=== PATIENT | female | born 1975 | race Caucasian/White ===

== ENCOUNTER 2016-03-27 11:17 | Emergency (ER) | payer OTHER, MEDICARE ==
[~2016-03-27 11:17] MED LIST: ALBU17IN2 INH; AMIT50TA PO; CLON0.5T PO; DIFL150T PO; GABA600T PO; IBUP800T23 PO; LEVA500T PO; MAGN400T5 PO; OXYC1TAB23 PO; ZANA4TAB PO
[2016-03-27] MEDS ORDERED: MORPHINE 4 MG/ML 1ML SYRINGE As Ordered ONE (12:58)
[2016-03-27] MEDS ORDERED: PERCOCET 5MG/325MG TAB As Ordered ONE (14:58)
--- NOTE | 2016-03-27 15:17 | EDDOCDS ---
Physician Documentation [facility] Name: Radha Anderson Age: 40 yrs Sex: Female : 1975 Arrival Date: 03/27/2016 Time: 11:17 Bed PD Private MD: Amadeo Guerrero G Disposition: 03/27/16 15:08 Discharged to Home/Self Care. Impression: Low back pain - post-op pain, Localized swelling, mass and lump, left lower limb, Abdominal distension (gaseous). - Condition is Stable. - Discharge Instructions: Chronic Back Pain, Edema. - Medication Reconciliation form. - Follow up: Private Physician; When: Call to arrange an appointment; Reason: Wound/Symptom Recheck, Recheck today's complaints, Worsening of conditions, Continuance of care. - Problem is an ongoing problem. - Symptoms are unchanged. - Notes: Call your surgeon for follow up tomorrow. Historical: - Allergies: Nortriptylineaggression; - Home Meds: 1. amitriptyline 100 mg oral tab once daily 2. gabapentin 600 mg Oral tab 1 tab 3 times per day 3. Klonopin 0.5 mg Oral tab qid uses 1 mg for third dose 4. oxycodone-acetaminophen 5-325 mg Oral tab 2 tabs every 4-6 hours (Last dose: 03/27/2016 09:00) 5. methocarbamol 500 mg Oral tab 4 times per day (Last dose: 03/27/2016 09:00) - PMHx: Kidney stones; stage II renal failure; Endometriosis; PTSD; Chronic Back pain; Depression; Anxiety; - PSHx: Laparoscopy; Lithotripsy; Endoscopy, Upper; nasal fracture; Lumbar Fusion; - Social history: Smoking status: Patient uses tobacco products, current every day smoker. No barriers to communication noted, The patient speaks fluent Bangladeshi. - Family history: Not pertinent. - : The pt / caregiver states he / she is not on anticoagulants. Home medication list is obtained from the patient. - Exposure Risk Screening:: None identified. 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 3 in. (160.02 cm); Pain 9/10; 14:52 BP 131 / 77; Pulse 81; Resp 18; Temp 96.7(O); Pulse Ox 96% on R/A; Pain 10/10; jjr 11:19 Body Mass Index 22.14 (56.70 kg, 160.02 cm) jrd MDM: 12:53 morphine 4 mg IM once ordered. cc10 12:54 UA Ordered. EDMS 12:54 US Lower Extremities Bilateral R/O DVT Ordered. EDMS 12:54 KUB Ordered. EDMS 12:54 Spine. Lumbosacral, Complete Ordered. EDMS 13:46 UA Reviewed. cc10 14:22 [facility] Payment Agreement was scanned into [employer] and attached to record. jp5 14:22 Financial registration complete. jp5 14:53 oxyCODONE-acetaminophen 5 mg-325 mg 2 tabs PO once ordered. jjr Administered Medications: 13:03 Drug: morphine 4 mg [morphine 4 mg/mL intravenous cartridge (1 mL)] Route: IM; Site: ms18 right gluteus; 14:52 Follow up: BP 131 / 77; Pulse 81 bpm; Resp 18 bpm; Temp 96.7 Oral; Pulse Ox 96% RA; jjr Pain 10 Adult 14:59 Drug: oxyCODONE-acetaminophen 2 tabs [oxycodone-acetaminophen 5 mg-325 mg tablet (2 jjr tabs)] Route: PO; Signatures: Dispatcher [employer] EDAmelia Gagnon RN RN jjr Pino De Paz PAFiorella PAFiorella cc10 Sushila Bryan RN RN ms18 Aislinn López jp5 The chart was reviewed and I authenticate all verbal orders and agree with the evaluation and treatment provided.Attachments: 14:22 [facility] Payment Agreement jp5 MTDD
--- NOTE | 2016-03-27 15:17 | EDDOCDS ---
Nurse's Notes [facility] Name: Radha Anderson Age: 40 yrs Sex: Female : 1975 Arrival Date: 03/27/2016 Time: 11:17 Bed PD Private MD: Amadeo Guerrero G Diagnosis: Low back sdma-kduy-le pain;Localized swelling, mass and lump, left lower limb;Abdominal distension (gaseous) Presentation: 03/27 11:25 Presenting complaint: Patient states: lumbar fusion with hardware with Dr Alfredo in [place] at [facility] 5 days ago,reports abdominal bloating increasing since surgery and bilateral leg swelling, pain also not controlled pt also reports new area of swelling beneath right subscapular, pt also reports "thrush and they forgot to send me home with abx". Adult Sepsis Screening: The patient does not have new or worsening altered mentation. Patient's respiratory rate is less than 22. Systolic blood pressure is greater than 100. Patient has a qSOFA score of 0- Negative Sepsis Screen. Suicide/Homicide risk assessment- the patient denies having any suicidal and/or homicidal ideations and does not present with any other emotional, behavioral or mental health complaints. Status: Patient is not a creative services producer or dependent. Transition of care: patient was not received from another setting of care. 11:25 Acuity: OK Level 3 jjr 11:25 Method Of Arrival: Walkin/Carried/Asstd jjr Triage Assessment: 11:33 General: Appears uncomfortable, Behavior is appropriate for age. Pain: Location: lumbar jjr area and abdomen. HIV screening NA for this visit Offered previously. 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 amitriptyline 100 mg oral tab once daily 2. gabapentin 600 mg Oral tab 1 tab 3 times per day 3. Klonopin 0.5 mg Oral tab qid uses 1 mg for third dose 4. oxycodone-acetaminophen 5-325 mg Oral tab 2 tabs every 4-6 hours (Last dose: 03/27/2016 09:00) 5. methocarbamol 500 mg Oral tab 4 times per day (Last dose: 03/27/2016 09:00) - PMHx: Kidney stones; stage II renal failure; Endometriosis; PTSD; Chronic Back pain; Depression; Anxiety; - PSHx: Laparoscopy; Lithotripsy; Endoscopy, Upper; nasal fracture; Lumbar Fusion; - Social history: Smoking status: Patient uses tobacco products, current every day smoker. No barriers to communication noted, The patient speaks fluent Slovak. - Family history: Not pertinent. - : The pt / caregiver states he / she is not on anticoagulants. Home medication list is obtained from the patient. - Exposure Risk Screening:: None identified. Screenin:03 Screening information is obtained from the patient. Fall risk: No risks identified. ms18 Assistance ADL's: requires no assistance with activities of daily living. Abuse/DV Screen: The patient / caregiver reports he/she is: not in a situation that causes fear, pain or injury. Nutritional screening: No deficits noted. Advance Directives: There is no living will. home support is adequate. Assessment: 13:03 General: Appears in no apparent distress, uncomfortable, Behavior is appropriate for ms18 age, cooperative, crying. Pain: Location: abdomen and lumbar area Pain currently is 9 out of 10 on a pain scale. Neurological: Level of Consciousness is awake, alert, obeys commands, Oriented to person, place, time. Respiratory: No deficits noted. Derm: Skin is pink, warm & dry. 14:10 General: Appears in no apparent distress, Behavior is appropriate for age, cooperative. ms18 Neurological: Level of Consciousness is awake, alert, obeys commands, Oriented to person, place, time. Respiratory: No deficits noted. Derm: Skin is pink, warm & dry. Removed pt's old dressings for Baldev NOLAN to assess surgical incisions. Incisions look good, no redness, swelling, or drainage noted. New dressings applied to pt's lower back and lower mid abdominal area. Pt tolerated well. Vital Signs: 11:19 BP 139 / 74; Pulse 97; Resp 20; Temp 97.6(O); Pulse Ox 97% ; Weight 56.7 kg; Height 5 jrd ft. 3 in. (160.02 cm); Pain 9/10; 14:52 BP 131 / 77; Pulse 81; Resp 18; Temp 96.7(O); Pulse Ox 96% on R/A; Pain 10/10; jjr 11:19 Body Mass Index 22.14 (56.70 kg, 160.02 cm) [facility] Vitals: 11:19 Log In Time: March 27, 2016 at 11:08. [facility] ED Course: 11:18 Patient visited by Jay Jay Acuna PCA. jrd 11:18 Patient moved to Waiting jrd 11:19 Amadeo Guerrero is Private Physician. jrd 11:20 Patient visited by Jay Jay Acuna PCA. jrd 11:20 Patient moved to Pre RCE jrd 11:29 Triage Initiated jjr 12:07 Patient moved to Triage 1 jjr 12:44 Pino De Paz PA-C is PHCP. cc10 12:44 Rebecca Marquez MD is Attending Physician. cc10 12:53 Patient visited by Pino De Paz PA-C. cc10 12:53 Patient visited by Pino De Paz PA-C. cc10 12:57 UA Sent. ar3 12:59 Patient moved to Ultrasound en 13:03 Patient visited by Sushila Bryan RN. ms18 13:03 The patient / caregiver is instructed regarding the plan of care and ED course. ms18 Accompanied by Family Member, Patient has correct armband on for positive identification. Property :Personal belongings accompany Pt. 13:35 Patient visited by Sushila Bryan RN. ms18 13:35 Patient moved to PD2 ms18 14:22 [facility] Payment Agreement was scanned into [employer] and attached to record. jp5 14:27 Patient visited by Bulmaro Walker PCA. f 15:14 No IV's were initiated during this patient's visit. No procedures done that require jjr assistance. Administered Medications: 13:03 Drug: morphine 4 mg [morphine 4 mg/mL intravenous cartridge (1 mL)] Route: IM; Site: ms18 right gluteus; 14:52 Follow up: BP 131 / 77; Pulse 81 bpm; Resp 18 bpm; Temp 96.7 Oral; Pulse Ox 96% RA; jjr Pain 12/06 Adult 14:59 Drug: oxyCODONE-acetaminophen 2 tabs [oxycodone-acetaminophen 5 mg-325 mg tablet (2 jjr tabs)] Route: PO; Order Results: Lab Order: UA; SPEC'M 03/27/16 12:57 Test: APPEARANCE, URINE; Value: CLEAR; Range: CLEAR; Status: F Test: COLOR, URINE; Value: YELLOW; Range: YELLOW; Status: F Test: PH,URINE; Value: 6.0; Range: 5.0-9.0; Units: UNITS; Status: F Test: SPECIFIC GRAVITY URINE AUTO; Value: 1.027; Range: 1.002-1.035; Status: F Test: PROTEIN, URINE AUTO; Value: NEGATIVE; Range: NEGATIVE; Units: mg/dL; Status: F Test: GLUCOSE, URINE (UA) AUTO; Value: NEGATIVE; Range: NEGATIVE; Units: mg/dL; Status: F Test: KETONE, URINE AUTO; Value: NEGATIVE; Range: NEGATIVE; Units: mg/dL; Status: F Test: UROBILINOGEN, URINE AUTO; Value: 0.2; Range: 0.0-2.0; Units: mg/dL; Status: F Test: BILIRUBIN, URINE AUTO; Value: 1+; Range: NEGATIVE; Abnormal: Above high normal; Status: F Test: NITRITE, URINE AUTO; Value: NEGATIVE; Range: NEGATIVE; Status: F Test: LEUKOCYTE ESTERASE, URINE AUTO; Value: NEGATIVE; Range: NEGATIVE; Status: F Test: BLOOD, URINE BLOOD; Value: NEGATIVE; Range: NEGATIVE; Status: F Test: WBC, URINE AUTO; Value: 1; Range: 0-3; Units: /HPF; Status: F Test: RBC, URINE AUTO; Value: 1; Range: 0-3; Units: /HPF; Status: F Test: BACTERIA, URINE AUTO; Value: NEGATIVE; Range: NEGATIVE; Status: F Test: SQUAMOUS EPITHELIAL CELL UR AU; Value: 7; Range: 0-6; Units: /HPF; Status: F Test: MUCUS, URINE; Value: SMALL; Range: NEGATIVE; Status: F Test: HYALINE CAST, URINE AUTO; Value: 0; Range: 0-1; Units: /LPF; Status: F Outcome: 15:08 Discharge ordered by Provider. cc10 15:14 Discharge Assessment: patient administered narcotics - yes. Pt provided with safe jjr discharge. The following High Risk Discharge criteria are identified: None. Discharged to home ambulatory, with parent. Condition: stable. Discharge instructions given to patient, Instructed on discharge instructions, follow up and referral plans. Demonstrated understanding of instructions. Ultrasound Study completed. 15:15 Patient left the ED. jjr Signatures: Amelia Monte, RN RN jjr Roberta Lorenzo, FULLING MACHINE OPERATOR FULLING MACHINE OPERATOR ar3 Bulmaro Walker, FULLING MACHINE OPERATOR FULLING MACHINE OPERATOR jlf Pino De Paz, PA-C PA-C cc10 Sushila Bryan,SNEHAL RN ms18 Jay Jay Acuna, FULLING MACHINE OPERATOR FULLING MACHINE OPERATOR d Tammy Weber Jennalee jp5 MTDD
--- NOTE | 2016-03-28 11:18 | REP ---
Bilateral lower extremity vein duplex ultrasound: The deep veins demonstrate normal compression, normal Doppler color flow and normal Doppler waveforms with respiration and augmentation at multiple levels from the popliteal veins to the common femoral veins bilaterally. Impression: Negative study. There is no deep vein thrombus on the right or the left. Signed by Vamshi Cavazos MD 03/27/2016 01:41 P
--- NOTE | 2016-03-28 11:18 | REP ---
Supine abdomen single AP view: Comparisons 02/06/2015. The bowel gas pattern is normal. No calcifications. There has been interim surgical fusion of the L4-L5 vertebra. The skeletal structures and soft tissues are otherwise unremarkable. Impression: Normal bowel gas pattern. Signed by Vamshi Cavazos MD 03/27/2016 01:35 P
--- NOTE | 2016-03-28 11:18 | REP ---
Lumbar spine five views: Upon review of a thoracic spine study dated 06/05/2008., there are accessory ribs adjacent to the L1 vertebral body. There has been interim surgical fusion of the L5 S1 vertebra. Vertebral body heights and alignment are normal. There is degenerative disc disease at L 03/04. The disc spaces are otherwise unremarkable. On the prior study, there was bilateral L5 spondylolysis. This is obscured by the surgical fusion hardware on the current study. The pedicles, facets and sacroiliac articulations are unremarkable. Impression: Bilateral L5 spondylolysis. There is L5 S1 surgical fusion. L3-4 degenerative disc disease. Otherwise, negative lumbar spine. Signed by Vamshi Cavazos MD 03/27/2016 01:40 P
--- NOTE | 2016-03-29 16:17 | EDDOCDS ---
Nurse's Notes [facility] Name: Radha Anderson Age: 40 yrs Sex: Female : 1975 Arrival Date: 03/27/2016 Time: 11:17 Bed PD Private MD: Amadeo Guerrero G Diagnosis: Low back [id number]-pw pain;Localized swelling, mass and lump, left lower limb;Abdominal distension (gaseous) Presentation: 03/27 11:25 Presenting complaint: Patient states: lumbar fusion with hardware with Dr Alfredo in [place] at [facility] 5 days ago,reports abdominal bloating increasing since surgery and bilateral leg swelling, pain also not controlled pt also reports new area of swelling beneath right subscapular, pt also reports "thrush and they forgot to send me home with abx". Adult Sepsis Screening: The patient does not have new or worsening altered mentation. Patient's respiratory rate is less than 22. Systolic blood pressure is greater than 100. Patient has a qSOFA score of 0- Negative Sepsis Screen. Suicide/Homicide risk assessment- the patient denies having any suicidal and/or homicidal ideations and does not present with any other emotional, behavioral or mental health complaints. Status: Patient is not a social service director or dependent. Transition of care: patient was not received from another setting of care. 11:25 Acuity: OK Level 3 jjr 11:25 Method Of Arrival: Walkin/Carried/Asstd jjr Triage Assessment: 11:33 General: Appears uncomfortable, Behavior is appropriate for age. Pain: Location: lumbar jjr area and abdomen. HIV screening NA for this visit Offered previously. 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 amitriptyline 100 mg oral tab once daily 2. gabapentin 600 mg Oral tab 1 tab 3 times per day 3. Klonopin 0.5 mg Oral tab qid uses 1 mg for third dose 4. oxycodone-acetaminophen 5-325 mg Oral tab 2 tabs every 4-6 hours (Last dose: 03/27/2016 09:00) 5. methocarbamol 500 mg Oral tab 4 times per day (Last dose: 03/27/2016 09:00) - PMHx: Kidney stones; stage II renal failure; Endometriosis; PTSD; Chronic Back pain; Depression; Anxiety; - PSHx: Laparoscopy; Lithotripsy; Endoscopy, Upper; nasal fracture; Lumbar Fusion; - Social history: Smoking status: Patient uses tobacco products, current every day smoker. No barriers to communication noted, The patient speaks fluent Uzbek. - Family history: Not pertinent. - : The pt / caregiver states he / she is not on anticoagulants. Home medication list is obtained from the patient. - Exposure Risk Screening:: None identified. Screenin:03 Screening information is obtained from the patient. Fall risk: No risks identified. ms18 Assistance ADL's: requires no assistance with activities of daily living. Abuse/DV Screen: The patient / caregiver reports he/she is: not in a situation that causes fear, pain or injury. Nutritional screening: No deficits noted. Advance Directives: There is no living will. home support is adequate. Assessment: 13:03 General: Appears in no apparent distress, uncomfortable, Behavior is appropriate for ms18 age, cooperative, crying. Pain: Location: abdomen and lumbar area Pain currently is 9 out of 10 on a pain scale. Neurological: Level of Consciousness is awake, alert, obeys commands, Oriented to person, place, time. Respiratory: No deficits noted. Derm: Skin is pink, warm & dry. 14:10 General: Appears in no apparent distress, Behavior is appropriate for age, cooperative. ms18 Neurological: Level of Consciousness is awake, alert, obeys commands, Oriented to person, place, time. Respiratory: No deficits noted. Derm: Skin is pink, warm & dry. Removed pt's old dressings for Baldev NOLAN to assess surgical incisions. Incisions look good, no redness, swelling, or drainage noted. New dressings applied to pt's lower back and lower mid abdominal area. Pt tolerated well. Vital Signs: 11:19 BP 139 / 74; Pulse 97; Resp 20; Temp 97.6(O); Pulse Ox 97% ; Weight 56.7 kg; Height 5 jrd ft. 3 in. (160.02 cm); Pain 9/10; 14:52 BP 131 / 77; Pulse 81; Resp 18; Temp 96.7(O); Pulse Ox 96% on R/A; Pain 10/10; jjr 11:19 Body Mass Index 22.14 (56.70 kg, 160.02 cm) [facility] Vitals: 11:19 Log In Time: March 27, 2016 at 11:08. [facility] ED Course: 11:18 Patient visited by Jay Jay Acuna PCA. jrd 11:18 Patient moved to Waiting jrd 11:19 Amadeo Guerrero is Private Physician. jrd 11:20 Patient visited by Jay Jay Acuna PCA. jrd 11:20 Patient moved to Pre RCE jrd 11:29 Triage Initiated jjr 12:07 Patient moved to Triage 1 jjr 12:44 Pino De Paz PA-C is PHCP. cc10 12:44 Rebecca Marquez MD is Attending Physician. cc10 12:53 Patient visited by Pino De Paz PA-C. cc10 12:53 Patient visited by Pino De Paz PA-C. cc10 12:57 UA Sent. ar3 12:59 Patient moved to Ultrasound en 13:03 Patient visited by Sushila Bryan RN. ms18 13:03 The patient / caregiver is instructed regarding the plan of care and ED course. ms18 Accompanied by Family Member, Patient has correct armband on for positive identification. Property :Personal belongings accompany Pt. 13:35 Patient visited by Sushila Bryan RN. ms18 13:35 Patient moved to PD2 ms18 14:22 [facility] Payment Agreement was scanned into [employer] and attached to record. jp5 14:27 Patient visited by Bulmaro Walker PCA. jlf 15:14 No IV's were initiated during this patient's visit. No procedures done that require jjr assistance. 18:36 T-Sheet-- Draft Copy was scanned into [employer] and attached to record. klr 03/28 11:20 KUB Returned. EDMS 11:20 Spine. Lumbosacral, Complete Returned. EDMS 11:20 US Lower Extremities Bilateral R/O DVT Returned. EDMS Administered Medications: 03/27 13:03 Drug: morphine 4 mg [morphine 4 mg/mL intravenous cartridge (1 mL)] Route: IM; Site: ms18 right gluteus; 14:52 Follow up: BP 131 / 77; Pulse 81 bpm; Resp 18 bpm; Temp 96.7 Oral; Pulse Ox 96% RA; jjr Pain 12/06 Adult 14:59 Drug: oxyCODONE-acetaminophen 2 tabs [oxycodone-acetaminophen 5 mg-325 mg tablet (2 jjr tabs)] Route: PO; Order Results: Lab Order: UA; SPEC'M 03/27/16 12:57 Test: APPEARANCE, URINE; Value: CLEAR; Range: CLEAR; Status: F Test: COLOR, URINE; Value: YELLOW; Range: YELLOW; Status: F Test: PH,URINE; Value: 6.0; Range: 5.0-9.0; Units: UNITS; Status: F Test: SPECIFIC GRAVITY URINE AUTO; Value: 1.027; Range: 1.002-1.035; Status: F Test: PROTEIN, URINE AUTO; Value: NEGATIVE; Range: NEGATIVE; Units: mg/dL; Status: F Test: GLUCOSE, URINE (UA) AUTO; Value: NEGATIVE; Range: NEGATIVE; Units: mg/dL; Status: F Test: KETONE, URINE AUTO; Value: NEGATIVE; Range: NEGATIVE; Units: mg/dL; Status: F Test: UROBILINOGEN, URINE AUTO; Value: 0.2; Range: 0.0-2.0; Units: mg/dL; Status: F Test: BILIRUBIN, URINE AUTO; Value: 1+; Range: NEGATIVE; Abnormal: Above high normal; Status: F Test: NITRITE, URINE AUTO; Value: NEGATIVE; Range: NEGATIVE; Status: F Test: LEUKOCYTE ESTERASE, URINE AUTO; Value: NEGATIVE; Range: NEGATIVE; Status: F Test: BLOOD, URINE BLOOD; Value: NEGATIVE; Range: NEGATIVE; Status: F Test: WBC, URINE AUTO; Value: 1; Range: 0-3; Units: /HPF; Status: F Test: RBC, URINE AUTO; Value: 1; Range: 0-3; Units: /HPF; Status: F Test: BACTERIA, URINE AUTO; Value: NEGATIVE; Range: NEGATIVE; Status: F Test: SQUAMOUS EPITHELIAL CELL UR AU; Value: 7; Range: 0-6; Units: /HPF; Status: F Test: MUCUS, URINE; Value: SMALL; Range: NEGATIVE; Status: F Test: HYALINE CAST, URINE AUTO; Value: 0; Range: 0-1; Units: /LPF; Status: F Radiology Order: KUB Test: KUB REASON FOR EXAMINATION: Abdomen Pain; Supine abdomen single AP view:; ; Comparisons 02/06/2015.; ; The bowel gas pattern is normal. No calcifications.; ; There has been interim surgical fusion of the L4-L5 vertebra.; ; The skeletal structures and soft tissues are otherwise unremarkable.; ; Impression:; ; Normal bowel gas pattern.; ; ; Signed by; Vamshi Cavazos MD 03/27/2016 01:35 P; Radiology Order: Spine. Lumbosacral, Complete Test: Spine. Lumbosacral, Complete REASON FOR EXAMINATION: pain; Lumbar spine five views:; ; Upon review of a thoracic spine study dated 06/05/2008., there are accessory ribs; adjacent to the L1 vertebral body.; ; There has been interim surgical fusion of the L5 S1 vertebra.; ; Vertebral body heights and alignment are normal. There is degenerative disc; disease at L 03/04. The disc spaces are otherwise unremarkable.; ; On the prior study, there was bilateral L5 spondylolysis. This is obscured by; the surgical fusion hardware on the current study.; ; The pedicles, facets and sacroiliac articulations are unremarkable.; ; Impression:; ; Bilateral L5 spondylolysis. There is L5 S1 surgical fusion.; ; L3-4 degenerative disc disease.; ; Otherwise, negative lumbar spine.; ; ; Signed by; Vamshi Cavazos MD 03/27/2016 01:40 P; Radiology Order: US Lower Extremities Bilateral R/O DVT Test: US Lower Extremities Bilateral R/O DVT REASON FOR EXAMINATION: Deformity/Swelling; Bilateral lower extremity vein duplex ultrasound:; ; The deep veins demonstrate normal compression, normal Doppler color flow and; normal Doppler waveforms with respiration and augmentation at multiple levels; from the popliteal veins to the common femoral veins bilaterally.; ; Impression:; ; Negative study. There is no deep vein thrombus on the right or the left.; ; ; Signed by; Vamshi Cavazos MD 03/27/2016 01:41 P; Outcome: 15:08 Discharge ordered by Provider. cc10 15:14 Discharge Assessment: patient administered narcotics - yes. Pt provided with safe jjr discharge. The following High Risk Discharge criteria are identified: None. Discharged to home ambulatory, with parent. Condition: stable. Discharge instructions given to patient, Instructed on discharge instructions, follow up and referral plans. Demonstrated understanding of instructions. Ultrasound Study completed. 15:15 Patient left the ED. lilyjr Signatures: Dispatcher [employer] EDMS Amelia Monte, RN RN jlilyr Roberta Lorenzo, CHANGE DIRECTOR CHANGE DIRECTOR ar3 Bulmaro Walker, CHANGE DIRECTOR CHANGE DIRECTOR jlf Pino De Paz, PA-C PA-C cc10 Sushila Bryan RN RN ms18 Jay Jay Acuna, CHANGE DIRECTOR CHANGE DIRECTOR Tammy Jauregui Jennalee jp5 Yady Meneses Chart Complete MTDD
--- NOTE | 2016-03-29 16:17 | EDDOCDS ---
Physician Documentation [facility] Name: Radha Anderson Age: 40 yrs Sex: Female : 1975 Arrival Date: 03/27/2016 Time: 11:17 [address] Private MD: Amadeo Guerrero G Disposition: 03/27/16 15:08 Discharged to Home/Self Care. Impression: Low back pain - post-op pain, Localized swelling, mass and lump, left lower limb, Abdominal distension (gaseous). - Condition is Stable. - Discharge Instructions: Chronic Back Pain, Edema. - Medication Reconciliation form. - Follow up: Private Physician; When: Call to arrange an appointment; Reason: Wound/Symptom Recheck, Recheck today's complaints, Worsening of conditions, Continuance of care. - Problem is an ongoing problem. - Symptoms are unchanged. - Notes: Call your surgeon for follow up tomorrow. Historical: - Allergies: Nortriptylineaggression; - Home Meds: 1. amitriptyline 100 mg oral tab once daily 2. gabapentin 600 mg Oral tab 1 tab 3 times per day 3. Klonopin 0.5 mg Oral tab qid uses 1 mg for third dose 4. oxycodone-acetaminophen 5-325 mg Oral tab 2 tabs every 4-6 hours (Last dose: 03/27/2016 09:00) 5. methocarbamol 500 mg Oral tab 4 times per day (Last dose: 03/27/2016 09:00) - PMHx: Kidney stones; stage II renal failure; Endometriosis; PTSD; Chronic Back pain; Depression; Anxiety; - PSHx: Laparoscopy; Lithotripsy; Endoscopy, Upper; nasal fracture; Lumbar Fusion; - Social history: Smoking status: Patient uses tobacco products, current every day smoker. No barriers to communication noted, The patient speaks fluent Gibraltarian. - Family history: Not pertinent. - : The pt / caregiver states he / she is not on anticoagulants. Home medication list is obtained from the patient. - Exposure Risk Screening:: None identified. 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 3 in. (160.02 cm); Pain 9/10; 14:52 BP 131 / 77; Pulse 81; Resp 18; Temp 96.7(O); Pulse Ox 96% on R/A; Pain 10/10; jjr 11:19 Body Mass Index 22.14 (56.70 kg, 160.02 cm) jrd MDM: 12:53 morphine 4 mg IM once ordered. cc10 12:54 UA Ordered. EDMS 12:54 US Lower Extremities Bilateral R/O DVT Ordered. EDMS 12:54 KUB Ordered. EDMS 12:54 Spine. Lumbosacral, Complete Ordered. EDMS 13:46 UA Reviewed. cc10 14:22 [facility] Payment Agreement was scanned into [employer] software and attached to record. jp5 14:22 Financial registration complete. jp5 14:53 oxyCODONE-acetaminophen 5 mg-325 mg 2 tabs PO once ordered. jjr 18:36 T-Sheet-- Draft Copy was scanned into [employer] software and attached to record. klr Administered Medications: 13:03 Drug: morphine 4 mg [morphine 4 mg/mL intravenous cartridge (1 mL)] Route: IM; Site: ms18 right gluteus; 14:52 Follow up: BP 131 / 77; Pulse 81 bpm; Resp 18 bpm; Temp 96.7 Oral; Pulse Ox 96% RA; jjr Pain 10 Adult 14:59 Drug: oxyCODONE-acetaminophen 2 tabs [oxycodone-acetaminophen 5 mg-325 mg tablet (2 jjr tabs)] Route: PO; Signatures: Dispatcher [employer] EDAmelia Gagnon, RN RN jjr Pino De Paz, PA-C PA-C cc10 Sushila Bryan RN RN ms18 Aislinn López jp5 Yady Meneses klbuffy The chart was reviewed and I authenticate all verbal orders and agree with the evaluation and treatment provided.Attachments: 14:22 [facility] Payment Agreement 5 18:36 T-Sheet-- Draft Copy klr Chart Complete MTDD
--- NOTE | 2016-03-29 16:17 | EDDOCDS ---
Physician Documentation [facility] Name: Rdaha Anderson Age: 40 yrs Sex: Female : 1975 Arrival Date: 03/27/2016 Time: 11:17 Bed [address] Private MD: Amadeo Guerrero G Disposition: 03/27/16 15:08 Discharged to Home/Self Care. Impression: Low back pain - post-op pain, Localized swelling, mass and lump, left lower limb, Abdominal distension (gaseous). - Condition is Stable. - Discharge Instructions: Chronic Back Pain, Edema. - Medication Reconciliation form. - Follow up: Private Physician; When: Call to arrange an appointment; Reason: Wound/Symptom Recheck, Recheck today's complaints, Worsening of conditions, Continuance of care. - Problem is an ongoing problem. - Symptoms are unchanged. - Notes: Call your surgeon for follow up tomorrow. Historical: - Allergies: Nortriptylineaggression; - Home Meds: 1. amitriptyline 100 mg oral tab once daily 2. gabapentin 600 mg Oral tab 1 tab 3 times per day 3. Klonopin 0.5 mg Oral tab qid uses 1 mg for third dose 4. oxycodone-acetaminophen 5-325 mg Oral tab 2 tabs every 4-6 hours (Last dose: 03/27/2016 09:00) 5. methocarbamol 500 mg Oral tab 4 times per day (Last dose: 03/27/2016 09:00) - PMHx: Kidney stones; stage II renal failure; Endometriosis; PTSD; Chronic Back pain; Depression; Anxiety; - PSHx: Laparoscopy; Lithotripsy; Endoscopy, Upper; nasal fracture; Lumbar Fusion; - Social history: Smoking status: Patient uses tobacco products, current every day smoker. No barriers to communication noted, The patient speaks fluent Syrian. - Family history: Not pertinent. - : The pt / caregiver states he / she is not on anticoagulants. Home medication list is obtained from the patient. - Exposure Risk Screening:: None identified. 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 3 in. (160.02 cm); Pain 9/10; 14:52 BP 131 / 77; Pulse 81; Resp 18; Temp 96.7(O); Pulse Ox 96% on R/A; Pain 10/10; jjr 11:19 Body Mass Index 22.14 (56.70 kg, 160.02 cm) jrd MDM: 12:53 morphine 4 mg IM once ordered. cc10 12:54 UA Ordered. EDMS 12:54 US Lower Extremities Bilateral R/O DVT Ordered. EDMS 12:54 KUB Ordered. EDMS 12:54 Spine. Lumbosacral, Complete Ordered. EDMS 13:46 UA Reviewed. cc10 14:22 [facility] Payment Agreement was scanned into [employer] and attached to record. jp5 14:22 Financial registration complete. jp5 14:53 oxyCODONE-acetaminophen 5 mg-325 mg 2 tabs PO once ordered. jjr 18:36 T-Sheet-- Draft Copy was scanned into [employer] and attached to record. klr Administered Medications: 13:03 Drug: morphine 4 mg [morphine 4 mg/mL intravenous cartridge (1 mL)] Route: IM; Site: ms18 right gluteus; 14:52 Follow up: BP 131 / 77; Pulse 81 bpm; Resp 18 bpm; Temp 96.7 Oral; Pulse Ox 96% RA; jjr Pain 10 Adult 14:59 Drug: oxyCODONE-acetaminophen 2 tabs [oxycodone-acetaminophen 5 mg-325 mg tablet (2 jjr tabs)] Route: PO; Signatures: Dispatcher MedHost EDAmelia Gagnon, RN RN jjr Pino De Paz, PA-C PA-C cc10 Sushila Bryan RN RN ms18 Aislinn López jp5 Yady Meneses klbuffy The chart was reviewed and I authenticate all verbal orders and agree with the evaluation and treatment provided.Attachments: 14:22 [facility] Payment Agreement 5 18:36 T-Sheet-- Draft Copy klr Chart Complete MTDD
== END 2016-03-27 15:15 | disposition home or self-care (01) ==
LOC: M ED 11:17
DX: G89.18 Other acute postprocedural pain (principal); M54.5 Low back pain; G89.28 Other chronic postprocedural pain; R60.0 Localized edema; R14.0 Abdominal distension (gaseous); F32.9 Major depressive disorder, single episode, unspecified; F41.9 Anxiety disorder, unspecified; N19 Unspecified kidney failure; N80.9 Endometriosis, unspecified; F17.210 Nicotine dependence, cigarettes, uncomplicated; Z79.899 Other long term (current) drug therapy; Z88.8 Allergy status to other drugs, medicaments and biological substances; Z98.1 Arthrodesis status

== ENCOUNTER 2016-04-23 12:31 | Emergency (ER) | payer OTHER, MEDICARE ==
--- NOTE | 2016-04-23 13:55 | REP ---
Clinical: Pain. Evaluate hardware. Technique: AP, lateral, bilateral oblique, and coned-down views. Comparison: 03/27/2016. Findings: Alignment and lordosis is maintained / stable. There is no evidence for acute fracture / compression injury or subluxation. Evidence for prior laminectomy with anterior/posterior fixation at the L5-S1 level noted and appears stable. Impression: Postsurgical changes at the L5-S1 level with associated hardware appears stable compared to prior examination. Otherwise normal alignment and appearance to the lumbar spine. Signed by Sergio Lyons MD 04/23/2016 01:47 P
--- NOTE | 2016-04-23 14:26 | EDDOCDS ---
Physician Documentation [facility] Name: Radha Anderson Age: 40 yrs Sex: Female : 1975 Arrival Date: 04/23/2016 Time: 12:31 Bed TR8 Private MD: Amadeo Guerrero G Disposition: 04/23/16 14:03 Discharged to Home/Self Care. Impression: Low back pain. - Condition is Stable. - Discharge Instructions: Back Pain, Adult, Dtoe-px-Maee. - Prescriptions for Percocet 5- 325 mg Oral Tablet - take 1 tablet by ORAL route every 6 hours As needed MDD: 4 tabs; 10 tablet. - Medication Reconciliation, Local Pharmacy Hours form. - Follow up: Private Physician; When: 1 - 2 days; Reason: Continuance of care. Follow up: Emergency Department; When: As needed; Reason: Worsening of conditions. - Problem is an ongoing problem. - Symptoms have improved. Historical: - Allergies: Nortriptylineaggression; Ibuprofen; - Home Meds: 1. Klonopin 1 mg oral tab 3 times per day as needed 2. gabapentin 600 mg Oral tab 1 tab 3 times per day 3. magnesium 400 mg oral tab daily 4. potassium chloride Unknown Oral once daily 5. oxycodone-acetaminophen 5-325 mg Oral tab 2 tabs every 4-6 hours 6. Ambien 5 mg Oral tab 1 tab once daily - PMHx: Anxiety; Chronic Back pain; Depression; Endometriosis; Kidney stones; PTSD; stage II renal failure; - PSHx: Laparoscopy; Lithotripsy; Endoscopy, Upper; nasal fracture; Lumbar Fusion; - Social history: Smoking status: Patient uses tobacco products, light tobacco smoker. No barriers to communication noted, The patient speaks fluent Maori, Speaks appropriately for age. - Family history: Not pertinent. - : The pt / caregiver states he / she is not on anticoagulants. Home medication list is obtained from the patient. - Exposure Risk Screening:: None identified. 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 3 in. (160.02 cm) (R); Pain 8/10; 14:17 BP 137 / 84; Pulse 93; Resp 16; Temp 98.0(O); Pulse Ox 100% on R/A; Pain 9/10; sew 12:32 Body Mass Index 22.32 (57.15 kg, 160.02 cm) lr2 MDM: 12:56 Spine. Lumbosacral, Complete Ordered. EDMS 13:13 Financial registration complete. lg 13:47 [facility] Payment Agreement was scanned into [employer] and attached to record. lg Signatures: Dispatcher [employer]Host EDMS Jeanine Tom, Reg Reg lg Zak Amaro RN RN mlb1 Naman Martinez, PANomanC PAFiorella dk1 Sushila Bryan,SNEHAL RN ms18 The chart was reviewed and I authenticate all verbal orders and agree with the evaluation and treatment provided.Attachments: 13:47 [facility] [place] Agreement lg MTDD
--- NOTE | 2016-04-23 14:26 | EDDOCDS ---
Nurse's Notes [facility] Name: Radha Anderson Age: 40 yrs Sex: Female : 1975 Arrival Date: 04/23/2016 Time: 12:31 Bed TR8 Private MD: Amadeo Guerrero G Diagnosis: Low back pain Presentation: 04/23 12:35 Presenting complaint: Patient states: Lumbar fusion a month ago pain in right lower mlb1 back radiating down right leg since worse since last night. Acute neurological deficits are not present. Mechanism of Injury: No Mechanism of Injury. Adult Sepsis Screening: The patient does not have new or worsening altered mentation. Patient's respiratory rate is less than 22. Systolic blood pressure is greater than 100. Patient has a qSOFA score of 0- Negative Sepsis Screen. Suicide/Homicide risk assessment- the patient denies having any suicidal and/or homicidal ideations and does not present with any other emotional, behavioral or mental health complaints. 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 Transition of care: patient was not received from another setting of care. 12:35 Acuity: OK Level 3 mlb1 12:35 Method Of Arrival: Walkin/Carried/Asstd mlb1 Triage Assessment: 12:39 General: Appears in no apparent distress, Behavior is appropriate for age, cooperative. mlb1 Pain: Location: lumbar area and right low back Pain currently is 8 out of 10 on a pain scale. HIV screening NA for this visit Offered previously. 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 Klonopin 1 mg oral tab 3 times per day as needed 2. gabapentin 600 mg Oral tab 1 tab 3 times per day 3. magnesium 400 mg oral tab daily 4. potassium chloride Unknown Oral once daily 5. oxycodone-acetaminophen 5-325 mg Oral tab 2 tabs every 4-6 hours 6. Ambien 5 mg Oral tab 1 tab once daily - PMHx: Anxiety; Chronic Back pain; Depression; Endometriosis; Kidney stones; PTSD; stage II renal failure; - PSHx: Laparoscopy; Lithotripsy; Endoscopy, Upper; nasal fracture; Lumbar Fusion; - Social history: Smoking status: Patient uses tobacco products, light tobacco smoker. No barriers to communication noted, The patient speaks fluent Luxembourgish, Speaks appropriately for age. - Family history: Not pertinent. - : The pt / caregiver states he / she is not on anticoagulants. Home medication list is obtained from the patient. - Exposure Risk Screening:: None identified. Screenin:22 Screening information is obtained from the patient. Fall risk: No risks identified. ms18 Assistance ADL's: requires no assistance with activities of daily living. Abuse/DV Screen: The patient / caregiver reports he/she is: not in a situation that causes fear, pain or injury. Nutritional screening: No deficits noted. Advance Directives: There is no living will. home support is adequate. Assessment: 14:22 General: Appears in no apparent distress, comfortable, Behavior is anxious, appropriate ms18 for age, cooperative. Pain: Location: lumbar area Pain currently is 9 out of 10 on a pain scale. Neurological: Level of Consciousness is awake, alert, obeys commands, Oriented to person, place, time. Respiratory: No deficits noted. Derm: Skin is pink, warm & dry. Musculoskeletal: Range of motion intact in all extremities. No deformity noted. Vital Signs: 12:32 BP 134 / 95; Pulse 103; Resp 16; Temp 97.9(O); Pulse Ox 100% on R/A; Weight 57.15 kg lr2 (R); Height 5 ft. 3 in. (160.02 cm) (R); Pain 8/10; 14:17 BP 137 / 84; Pulse 93; Resp 16; Temp 98.0(O); Pulse Ox 100% on R/A; Pain 9/10; sew 12:32 Body Mass Index 22.32 (57.15 kg, 160.02 cm) lr2 Vitals: 12:32 Log In Time: April 23, 2016 at 12:31. lr2 ED Course: 12:32 Patient visited by Nishi Clement. lr2 12:32 Patient moved to Waiting lr2 12:34 Amadeo Guerrero is Private Physician. lr2 12:34 Patient moved to Pre RCE lr2 12:35 Patient visited by Zak Amaro, SNEHAL. mlb1 12:37 Triage Initiated mlb1 12:40 Patient visited by Zak Amaro RN. mlb1 12:40 Patient moved to Triage 2 mlb1 12:42 Naman Martinez PA-C [facility]. dk1 12:42 Corey Butler MD is Attending Physician. dk1 12:47 Patient visited by Naman Martinez PA-C. dk1 13:02 Patient moved to TR1 sew 13:47 [facility] Payment Agreement was scanned into [employer]hub and attached to record. lg 14:14 Patient moved to PR1 / 25 mlb1 14:18 Patient visited by Elvie Wells. sew 14:21 Patient moved to TR8 ms18 14:22 The patient / caregiver is instructed regarding the plan of care and ED course. Patient ms18 has correct armband on for positive identification. Property sent home with patient. :Personal belongings accompany Pt. 14:22 No IV's were initiated during this patient's visit. No procedures done that require ms18 assistance. Order Results: There are currently no results for this order. Outcome: 14:03 Discharge ordered by Provider. dk1 14:22 Discharge Assessment: Patient awake, alert and oriented x 3. No cognitive and/or ms18 functional deficits noted. Patient verbalized understanding of disposition instructions. patient administered narcotics - no. The following High Risk Discharge criteria are identified: None. Discharged to home ambulatory. Condition: good Condition: stable. Discharge instructions given to patient, Instructed on discharge instructions, follow up and referral plans. medication usage, Demonstrated understanding of instructions, medications, Pt was receptive of discharge instructions/ teaching. Prescriptions given X 1. No special radiology studies were completed. 14:26 Patient left the ED. ms18 Signatures: Jeanine Tom, Reg Reg lg Zak Amaro RN RN mlb1 Naman Martinez PA-C PA-C [facility] Elvie Wells Mallory,SNEHAL RN ms18 Nishi Clement lr2 MTDD
--- NOTE | 2016-04-25 15:27 | EDDOCDS ---
Nurse's Notes [facility] Name: Radha Anderson Age: 40 yrs Sex: Female : 1975 Arrival Date: 04/23/2016 Time: 12:31 Bed TR8 Private MD: Amadeo Guerrero G Diagnosis: Low back pain Presentation: 04/23 12:35 Presenting complaint: Patient states: Lumbar fusion a month ago pain in right lower mlb1 back radiating down right leg since worse since last night. Acute neurological deficits are not present. Mechanism of Injury: No Mechanism of Injury. Adult Sepsis Screening: The patient does not have new or worsening altered mentation. Patient's respiratory rate is less than 22. Systolic blood pressure is greater than 100. Patient has a qSOFA score of 0- Negative Sepsis Screen. Suicide/Homicide risk assessment- the patient denies having any suicidal and/or homicidal ideations and does not present with any other emotional, behavioral or mental health complaints. 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 Transition of care: patient was not received from another setting of care. 12:35 Acuity: OK Level 3 mlb1 12:35 Method Of Arrival: Walkin/Carried/Asstd mlb1 Triage Assessment: 12:39 General: Appears in no apparent distress, Behavior is appropriate for age, cooperative. mlb1 Pain: Location: lumbar area and right low back Pain currently is 8 out of 10 on a pain scale. HIV screening NA for this visit Offered previously. 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 Klonopin 1 mg oral tab 3 times per day as needed 2. gabapentin 600 mg Oral tab 1 tab 3 times per day 3. magnesium 400 mg oral tab daily 4. potassium chloride Unknown Oral once daily 5. oxycodone-acetaminophen 5-325 mg Oral tab 2 tabs every 4-6 hours 6. Ambien 5 mg Oral tab 1 tab once daily - PMHx: Anxiety; Chronic Back pain; Depression; Endometriosis; Kidney stones; PTSD; stage II renal failure; - PSHx: Laparoscopy; Lithotripsy; Endoscopy, Upper; nasal fracture; Lumbar Fusion; - Social history: Smoking status: Patient uses tobacco products, light tobacco smoker. No barriers to communication noted, The patient speaks fluent Frisian, Speaks appropriately for age. - Family history: Not pertinent. - : The pt / caregiver states he / she is not on anticoagulants. Home medication list is obtained from the patient. - Exposure Risk Screening:: None identified. Screenin:22 Screening information is obtained from the patient. Fall risk: No risks identified. ms18 Assistance ADL's: requires no assistance with activities of daily living. Abuse/DV Screen: The patient / caregiver reports he/she is: not in a situation that causes fear, pain or injury. Nutritional screening: No deficits noted. Advance Directives: There is no living will. home support is adequate. Assessment: 14:22 General: Appears in no apparent distress, comfortable, Behavior is anxious, appropriate ms18 for age, cooperative. Pain: Location: lumbar area Pain currently is 9 out of 10 on a pain scale. Neurological: Level of Consciousness is awake, alert, obeys commands, Oriented to person, place, time. Respiratory: No deficits noted. Derm: Skin is pink, warm & dry. Musculoskeletal: Range of motion intact in all extremities. No deformity noted. Vital Signs: 12:32 BP 134 / 95; Pulse 103; Resp 16; Temp 97.9(O); Pulse Ox 100% on R/A; Weight 57.15 kg lr2 (R); Height 5 ft. 3 in. (160.02 cm) (R); Pain 8/10; 14:17 BP 137 / 84; Pulse 93; Resp 16; Temp 98.0(O); Pulse Ox 100% on R/A; Pain 9/10; sew 12:32 Body Mass Index 22.32 (57.15 kg, 160.02 cm) lr2 Vitals: 12:32 Log In Time: April 23, 2016 at 12:31. lr2 ED Course: 12:32 Patient visited by Nishi Clement. lr2 12:32 Patient moved to Waiting lr2 12:34 Amadeo Guerrero is Private Physician. lr2 12:34 Patient moved to Pre RCE lr2 12:35 Patient visited by Zak Amaro, SNEHAL. mlb1 12:37 Triage Initiated mlb1 12:40 Patient visited by Zak Amaro RN. mlb1 12:40 Patient moved to Triage 2 mlb1 12:42 Naman Martinez PA-C [facility]. dk1 12:42 Corey Butler MD is Attending Physician. dk1 12:47 Patient visited by Naman Martinez PA-C. dk1 13:02 Patient moved to TR1 sew 13:47 [facility] Payment Agreement was scanned into [employer] and attached to record. lg 14:14 Patient moved to PR1 / 25 mlb1 14:18 Patient visited by Elvie Wells. sew 14:21 Patient moved to TR8 ms18 14:22 The patient / caregiver is instructed regarding the plan of care and ED course. Patient ms18 has correct armband on for positive identification. Property sent home with patient. :Personal belongings accompany Pt. 14:22 No IV's were initiated during this patient's visit. No procedures done that require ms18 assistance. 14:27 Spine. Lumbosacral, Complete Returned. EDMS 15:31 T-Sheet-- Draft Copy was scanned into [employer] and attached to record. klr Order Results: Radiology Order: Spine. Lumbosacral, Complete Test: Spine. Lumbosacral, Complete REASON FOR EXAMINATION: harware placement; Clinical: Pain. Evaluate hardware.; ; Technique: AP, lateral, bilateral oblique, and coned-down views.; ; Comparison: 03/27/2016.; ; Findings: Alignment and lordosis is maintained / stable. There is no evidence; for acute fracture / compression injury or subluxation. Evidence for prior; laminectomy with anterior/posterior fixation at the L5-S1 level noted and appears; stable.; ; Impression:; Postsurgical changes at the L5-S1 level with associated hardware appears stable; compared to prior examination.; Otherwise normal alignment and appearance to the lumbar spine.; ; ; Signed by; Sergio Lyons MD 04/23/2016 01:47 P; Outcome: 14:03 Discharge ordered by Provider. dk1 14:22 Discharge Assessment: Patient awake, alert and oriented x 3. No cognitive and/or ms18 functional deficits noted. Patient verbalized understanding of disposition instructions. patient administered narcotics - no. The following High Risk Discharge criteria are identified: None. Discharged to home ambulatory. Condition: good Condition: stable. Discharge instructions given to patient, Instructed on discharge instructions, follow up and referral plans. medication usage, Demonstrated understanding of instructions, medications, Pt was receptive of discharge instructions/ teaching. Prescriptions given X 1. No special radiology studies were completed. 14:26 Patient left the ED. ms18 Signatures: Dispatcher [employer] EDJeanine Aparicio, Zak Torrez lg RN RN mlb1 Naman Martinez, PANomanC PA-C dk1 Elvie Wells Mallory, RN RN ms18 Yady Meneses Laura lr2 Chart Complete MTDD
--- NOTE | 2016-04-25 15:27 | EDDOCDS ---
Physician Documentation [facility] Name: Radha Anderson Age: 40 yrs Sex: Female : 1975 Arrival Date: 04/23/2016 Time: 12:31 Bed TR8 Private MD: Amadeo Guerrero G Disposition: 04/23/16 14:03 Discharged to Home/Self Care. Impression: Low back pain. - Condition is Stable. - Discharge Instructions: Back Pain, Adult, [id number]. - Prescriptions for Percocet 5- 325 mg Oral Tablet - take 1 tablet by ORAL route every 6 hours As needed MDD: 4 tabs; 10 tablet. - Medication Reconciliation, Local Pharmacy Hours form. - Follow up: Private Physician; When: 1 - 2 days; Reason: Continuance of care. Follow up: Emergency Department; When: As needed; Reason: Worsening of conditions. - Problem is an ongoing problem. - Symptoms have improved. Historical: - Allergies: Nortriptylineaggression; Ibuprofen; - Home Meds: 1. Klonopin 1 mg oral tab 3 times per day as needed 2. gabapentin 600 mg Oral tab 1 tab 3 times per day 3. magnesium 400 mg oral tab daily 4. potassium chloride Unknown Oral once daily 5. oxycodone-acetaminophen 5-325 mg Oral tab 2 tabs every 4-6 hours 6. Ambien 5 mg Oral tab 1 tab once daily - PMHx: Anxiety; Chronic Back pain; Depression; Endometriosis; Kidney stones; PTSD; stage II renal failure; - PSHx: Laparoscopy; Lithotripsy; Endoscopy, Upper; nasal fracture; Lumbar Fusion; - Social history: Smoking status: Patient uses tobacco products, light tobacco smoker. No barriers to communication noted, The patient speaks fluent Lithuanian, Speaks appropriately for age. - Family history: Not pertinent. - : The pt / caregiver states he / she is not on anticoagulants. Home medication list is obtained from the patient. - Exposure Risk Screening:: None identified. 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 3 in. (160.02 cm) (R); Pain 8/10; 14:17 BP 137 / 84; Pulse 93; Resp 16; Temp 98.0(O); Pulse Ox 100% on R/A; Pain 9/10; sew 12:32 Body Mass Index 22.32 (57.15 kg, 160.02 cm) lr2 MDM: 12:56 Spine. Lumbosacral, Complete Ordered. EDMS 13:13 Financial registration complete. lg 13:47 [facility] Payment Agreement was scanned into [employer] and attached to record. lg 15:31 T-Sheet-- Draft Copy was scanned into [employer] and attached to record. klr Signatures: Dispatcher [employer] EDMS Jeanine Tom, Kosta Reg lg Zak Amaro RN RN mlb1 Naman Martinez, PA-C PA-C dk1 Sushila Bryan RN RN [id number] Yady Meneses The chart was reviewed and I authenticate all verbal orders and agree with the evaluation and treatment provided.Attachments: 13:47 [facility] Payment Agreement lg 15:31 T-Sheet-- Draft Copy klr Chart Complete MTDD
--- NOTE | 2016-04-25 15:27 | EDDOCDS ---
Physician Documentation [facility] Name: Radha Anderson Age: 40 yrs Sex: Female : 1975 Arrival Date: 04/23/2016 Time: 12:31 Bed TR8 Private MD: Amadeo Gurerero G Disposition: 04/23/16 14:03 Discharged to Home/Self Care. Impression: Low back pain. - Condition is Stable. - Discharge Instructions: Back Pain, Adult, [id number]. - Prescriptions for Percocet 5- 325 mg Oral Tablet - take 1 tablet by ORAL route every 6 hours As needed MDD: 4 tabs; 10 tablet. - Medication Reconciliation, Local Pharmacy Hours form. - Follow up: Private Physician; When: 1 - 2 days; Reason: Continuance of care. Follow up: Emergency Department; When: As needed; Reason: Worsening of conditions. - Problem is an ongoing problem. - Symptoms have improved. Historical: - Allergies: Nortriptylineaggression; Ibuprofen; - Home Meds: 1. Klonopin 1 mg oral tab 3 times per day as needed 2. gabapentin 600 mg Oral tab 1 tab 3 times per day 3. magnesium 400 mg oral tab daily 4. potassium chloride Unknown Oral once daily 5. oxycodone-acetaminophen 5-325 mg Oral tab 2 tabs every 4-6 hours 6. Ambien 5 mg Oral tab 1 tab once daily - PMHx: Anxiety; Chronic Back pain; Depression; Endometriosis; Kidney stones; PTSD; stage II renal failure; - PSHx: Laparoscopy; Lithotripsy; Endoscopy, Upper; nasal fracture; Lumbar Fusion; - Social history: Smoking status: Patient uses tobacco products, light tobacco smoker. No barriers to communication noted, The patient speaks fluent Malay, Speaks appropriately for age. - Family history: Not pertinent. - : The pt / caregiver states he / she is not on anticoagulants. Home medication list is obtained from the patient. - Exposure Risk Screening:: None identified. 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 3 in. (160.02 cm) (R); Pain 8/10; 14:17 BP 137 / 84; Pulse 93; Resp 16; Temp 98.0(O); Pulse Ox 100% on R/A; Pain 9/10; sew 12:32 Body Mass Index 22.32 (57.15 kg, 160.02 cm) lr2 MDM: 12:56 Spine. Lumbosacral, Complete Ordered. EDMS 13:13 Financial registration complete. lg 13:47 [facility] Payment Agreement was scanned into [employer] and attached to record. lg 15:31 T-Sheet-- Draft Copy was scanned into [employer] and attached to record. klr Signatures: Dispatcher [employer] EDMS Jeanine Tom, Kosta Reg lg Zak Amaro RN RN mlb1 Naman Martinez, PA-C PA-C dk1 Sushila Bryan RN RN [id number] Yady Meneses The chart was reviewed and I authenticate all verbal orders and agree with the evaluation and treatment provided.Attachments: 13:47 [facility] Payment Agreement lg 15:31 T-Sheet-- Draft Copy klr Chart Complete MTDD
== END 2016-04-23 14:26 | disposition home or self-care (01) ==
LOC: M ED 12:31
DX: M54.5 Low back pain (principal); G89.29 Other chronic pain; F41.9 Anxiety disorder, unspecified; F32.9 Major depressive disorder, single episode, unspecified; Z87.442 Personal history of urinary calculi; F43.10 Post-traumatic stress disorder, unspecified; N18.2 Chronic kidney disease, stage 2 (mild); Z98.1 Arthrodesis status; Z72.0 Tobacco use; Z79.899 Other long term (current) drug therapy; Z88.6 Allergy status to analgesic agent; Z88.8 Allergy status to other drugs, medicaments and biological substances

== ENCOUNTER 2016-08-05 13:30 | Emergency (ER) | payer OTHER, MEDICARE ==
[~2016-08-05] VITALS: Ht 160 cm; Wt 56.3 kg
[~2016-08-05 13:30] MED LIST changes: +IBUP1TAB7 PO; -IBUP800T23 PO; +LEVA1TAB2 PO; -LEVA500T PO
[2016-08-05] MEDS ORDERED: MIRT30TA3 PO (13:57)
[2016-08-05] MEDS ORDERED: CARB1TAB20 PO (13:57)
[2016-08-05] MEDS ORDERED: FURO20TA2 PO (13:57)
[2016-08-05] MEDS ORDERED: HYDR25TAB PO (13:57)
[2016-08-05] MEDS ORDERED: VENL150C43 PO (13:57)
[2016-08-05] MEDS ORDERED: DIPY75TA PO (13:57)
[2016-08-05] MEDS ORDERED: ADDE20CA3 PO (13:57)
[2016-08-05] MEDS ORDERED: ROBA500T PO (13:57)
[2016-08-05] MEDS ORDERED: CYCL10TA PO (13:57)
[2016-08-05] MEDS ORDERED: AMBI10TA PO (13:57)
[2016-08-05] MEDS ORDERED: OXYC-405 PO (13:57)
[2016-08-05] MEDS ORDERED: KLON1TAB PO (13:57)
[2016-08-05] MEDS ORDERED: LORazepam 2 MG/ML VIAL (J2060) IV STA (14:17)
[2016-08-05 14:54] LABS: INR 0.9
[2016-08-05 14:55] LABS: BASO % 0.4 % (0.0-1.0); EOS # 0.1 K/mm3 (0.0-0.50); EOS % 1.5 % (0.0-3.0); LARGE UNSTAINED CELL # 0.1 K/mm3 (0.0-0.4); LARGE UNSTAINED CELL % 2.1 % (0.0-4.0); LYMPH # 2.1 K/mm3 (1.5-4.5); LYMPH % 28.8 % (24.0-44.0); MEAN CORPUSCULAR HGB CONC 33.8 g/dl (32.0-36.5); MEAN CORPUSCULAR VOLUME 94.6 fl (80.0-96.0); MONO # 0.5 K/mm3 (0.0-0.8); MONO % 6.8 % (0.0-5.0); NEUTROPHILS # 4.1 K/mm3 (1.8-7.7); NEUTROPHILS % 60.4 % (36.0-66.0); PLATELET COUNT, AUTOMATED 295 k/mm3 (150-450); RED CELL DISTRIBUTION WIDTH 15.2 % (11.5-14.5); WHITE BLOOD COUNT 6.8 K/mm3 (4.0-10.0)
[2016-08-05 15:00] LABS: ANION GAP 2 MEQ/L (8-16); BLOOD UREA NITROGEN 8 MG/DL (7-18); CALCIUM LEVEL 8.8 MG/DL (8.5-10.1); CARBON DIOXIDE LEVEL 33 MEQ/L (21-32); CHLORIDE LEVEL 106 MEQ/L (98-107); CREATININE FOR GFR 0.63 MG/DL (0.55-1.02); GLOMERULAR FILTRATION RATE > 60.0 (>58); GLUCOSE, FASTING 78 MG/DL (70-105); POTASSIUM SERUM 3.2 MEQ/L (3.5-5.1); SODIUM LEVEL 141 MEQ/L (136-145)
--- NOTE | 2016-08-05 15:03 | REP ---
Left lower extremity deep vein duplex ultrasound: Comparison is 03/27/2016. The deep veins demonstrate normal compression, normal Doppler color flow and normal Doppler waveforms from the popliteal vein to the common femoral vein. Impression: No left lower extremity deep vein thrombus. Signed by Vamshi Cavazos MD 08/05/2016 02:54 P
[2016-08-05 15:16] LABS: ERYTHROCYTE SEDIMENTATION RATE 25 mm/hr (0-20)
[2016-08-05] MEDS ORDERED: LIDO1OIN2 TOP (16:05)
[2016-08-05 16:12] VITALS: BP 118/58
== END 2016-08-05 16:13 | disposition home or self-care (01) ==
LOC: M ED 14:44
DX: M79.89 Other specified soft tissue disorders (principal); S00.419A Abrasion of unspecified ear, initial encounter; X58.XXXA Exposure to other specified factors, initial encounter; Y92.89 Other specified places as the place of occurrence of the external cause; Y93.E8 Activity, other personal hygiene; Y99.8 Other external cause status; F17.210 Nicotine dependence, cigarettes, uncomplicated; N18.2 Chronic kidney disease, stage 2 (mild); E11.9 Type 2 diabetes mellitus without complications; E05.90 Thyrotoxicosis, unspecified without thyrotoxic crisis or storm; F41.9 Anxiety disorder, unspecified; M54.9 Dorsalgia, unspecified; G89.29 Other chronic pain; Z88.8 Allergy status to other drugs, medicaments and biological substances; Z79.899 Other long term (current) drug therapy; Z79.891 Long term (current) use of opiate analgesic
CPT/HCPCS: 80048; 85025; 85610; 85652; 85730; 93971; 99284; J2060

== ENCOUNTER 2016-08-16 18:48 | Emergency (ER) | payer MEDICARE ==
[~2016-08-16] VITALS: Ht 160 cm; Wt 54.0 kg
[~2016-08-16 18:48] MED LIST changes: +ADDE20CA3 PO; +AMBI10TA PO; +CARB1TAB20 PO; +CYCL10TA PO; +DIPY75TA PO; +FURO20TA2 PO; +HYDR25TAB PO; +KLON1TAB PO; +LIDO1OIN2 TOP; +MIRT30TA3 PO; +OXYC-405 PO; +ROBA500T PO; +VENL150C43 PO
[2016-08-16 18:50] VITALS: BP 140/104
== END 2016-08-16 19:56 | disposition left against medical advice (07) ==
LOC: M ED 19:27
DX: G62.9 Polyneuropathy, unspecified (principal); N18.2 Chronic kidney disease, stage 2 (mild); E11.29 Type 2 diabetes mellitus with other diabetic kidney complication; E03.9 Hypothyroidism, unspecified; Z79.899 Other long term (current) drug therapy; Z88.6 Allergy status to analgesic agent; Z88.8 Allergy status to other drugs, medicaments and biological substances; Z91.018 Allergy to other foods
CPT/HCPCS: 99281; 99282; J1170

== ENCOUNTER 2016-08-16 21:22 | Emergency (ER) | payer MEDICARE ==
[~2016-08-16] VITALS: Ht 160 cm; Wt 54.0 kg
[2016-08-16] MEDS ORDERED: HYDROmorphone HCL 1 MG/ML SYRINGE (J1170) IM ONE (23:45)
[2016-08-17 00:16] VITALS: BP 118/85
== END 2016-08-17 00:18 | disposition home or self-care (01) ==
LOC: M ED 22:53
DX: G89.4 Chronic pain syndrome (principal); N18.9 Chronic kidney disease, unspecified; F17.200 Nicotine dependence, unspecified, uncomplicated

== ENCOUNTER 2016-08-22 15:14 | Emergency (ER) | payer MEDICARE ==
[~2016-08-22] VITALS: Ht 160 cm; Wt 57.3 kg
[2016-08-22] MEDS ORDERED: NS 1,000 ML IV SCH (15:25)
[2016-08-22] MEDS ORDERED: METOCLOPRAMIDE INJ 10MG/2ML VIAL (J2765) IV ONE (16:00)
[2016-08-22 17:04] LABS: BASO % 0.5 % (0.0-1.0); EOS % 0.1 % (0.0-3.0); LARGE UNSTAINED CELL # 0.1 K/mm3 (0.0-0.4); LARGE UNSTAINED CELL % 1.1 % (0.0-4.0); LYMPH # 1.8 K/mm3 (1.5-4.5); MEAN CORPUSCULAR HEMOGLOBIN 31.6 pg (27.0-33.0); MEAN CORPUSCULAR HGB CONC 32.6 g/dl (32.0-36.5); MEAN CORPUSCULAR VOLUME 97.1 fl (80.0-96.0); MONO # 0.3 K/mm3 (0.0-0.8); MONO % 3.1 % (0.0-5.0); NEUTROPHILS % 73.1 % (36.0-66.0); PLATELET COUNT, AUTOMATED 336 k/mm3 (150-450); RED CELL DISTRIBUTION WIDTH 15.7 % (11.5-14.5); WHITE BLOOD COUNT 8.2 K/mm3 (4.0-10.0)
[2016-08-22 17:24] LABS: CONTROL LINE HCG INT CTR LINE PRESENT
[2016-08-22 17:36] LABS: ALBUMIN 3.6 GM/DL (3.2-5.2); ALKALINE PHOSPHATASE 82 U/L (45-117); ALT/SGPT 13 U/L (12-78); ANION GAP 5 MEQ/L (8-16); AST/SGOT 10 U/L (15-37); BILIRUBIN,DIRECT < 0.1 MG/DL (0.0-0.2); BLOOD UREA NITROGEN 9 MG/DL (7-18); CALCIUM LEVEL 8.4 MG/DL (8.5-10.1); CARBON DIOXIDE LEVEL 27 MEQ/L (21-32); CHLORIDE LEVEL 111 MEQ/L (98-107); CREATININE FOR GFR 0.53 MG/DL (0.55-1.02); GLOMERULAR FILTRATION RATE > 60.0 (>58); GLUCOSE, FASTING 80 MG/DL (70-105); SODIUM LEVEL 143 MEQ/L (136-145); TOTAL PROTEIN 6.6 GM/DL (6.4-8.2)
--- NOTE | 2016-08-22 17:43 | REP ---
Clinical: Acute altered mental status. Comparison: 12/22/2013 . Findings: Age-related atrophy and microvascular ischemic changes are appreciated. The ventricles and sulci are symmetric. Knapp-white differentiation is maintained. There is no evidence for acute intracranial hemorrhage, mass/mass effect, pathology or infarction. No extra-axial fluid collection. Calvarium is intact. Paranasal sinuses and mastoid air cells are clear. Impression: Age related atrophy and microvascular ischemic changes. No acute intracranial hemorrhage, infarction, or mass/mass effect. Signed by Sergio Lyons MD 08/22/2016 05:34 P
[2016-08-22 17:44] LABS: BILIRUBIN,TOTAL 0.3 MG/DL (0.2-1.0); CARBAMAZEPINE (TEGRETOL) LEVEL 9.4 UG/ML (4.0-10.0)
[2016-08-22 18:02] LABS: METHADONE URINE NEGATIVE (NEGATIVE)
--- NOTE | 2016-08-22 18:21 | REP ---
Clinical: Altered mental status. Technique: PA and lateral. Comparison: 03/14/2016. Findings: Mediastinum and cardiac silhouette are normal. Chronic stable changes primarily involving the left lower lung zone are again appreciated. No acute consolidation, effusion, or pneumothorax. Skeletal structures intact. Impression: Chronic stable changes. No acute cardiopulmonary process. Signed by Sergio Lyons MD 08/22/2016 06:13 P
[2016-08-22 18:25] VITALS: BP 107/64
[2016-08-22] MEDS ORDERED: CENTTAB36 PO (18:41)
[2016-08-22] MEDS ORDERED: CARB20TA PO (18:43)
--- NOTE | 2016-08-22 20:07 | ECGEPIP ---
Stationary ECG Study 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
== END 2016-08-22 18:56 | disposition home or self-care (01) ==
LOC: M ED 16:02
DX: R56.9 Unspecified convulsions (principal); G90.50 Complex regional pain syndrome I, unspecified; N19 Unspecified kidney failure; F17.200 Nicotine dependence, unspecified, uncomplicated; Z79.899 Other long term (current) drug therapy; Z91.018 Allergy to other foods; Z88.6 Allergy status to analgesic agent
CPT/HCPCS: 70450; 71020; 80048; 80076; 80156; 80306; 81001; 82550; 82553; 83605; 84443; 84484; 84703; 85025; 93005; 93041; 94760; 96374; 99285; G0480; J2765

== ENCOUNTER 2016-11-12 16:43 | Emergency (ER) | payer MEDICARE, MEDICAID ==
[~2016-11-12] VITALS: Ht 160 cm; Wt 52.3 kg
[~2016-11-12 16:43] MED LIST changes: +CARB20TA PO; +CENTTAB36 PO
[2016-11-12] MEDS ORDERED: LAMO100T (17:01)
[2016-11-12] MEDS ORDERED: NS 1,000 ML IV ONE (17:45)
[2016-11-12] MEDS ORDERED: MORPHINE 4 MG/ML 1ML SYRINGE IV ONE (17:45)
[2016-11-12] MEDS ORDERED: ONDANSETRON 4MG/2ML VIAL (J2405) IV ONE ×2 (17:45→19:30)
[2016-11-12 17:57] LABS: CONTROL LINE UCG INT CTR LINE PRESENT
[2016-11-12 18:22] LABS: BASO # 0.1 K/mm3 (0.0-0.2); BASO % 0.6 % (0.0-1.0); EOS # 0.3 K/mm3 (0.0-0.50); EOS % 3.2 % (0.0-3.0); LARGE UNSTAINED CELL # 0.2 K/mm3 (0.0-0.4); LARGE UNSTAINED CELL % 1.6 % (0.0-4.0); LYMPH # 3.1 K/mm3 (1.5-4.5); LYMPH % 29.3 % (24.0-44.0); MEAN CORPUSCULAR HEMOGLOBIN 31.9 pg (27.0-33.0); MEAN CORPUSCULAR HGB CONC 32.1 g/dl (32.0-36.5); MEAN CORPUSCULAR VOLUME 99.3 fl (80.0-96.0); MONO # 0.3 K/mm3 (0.0-0.8); MONO % 3.2 % (0.0-5.0); NEUTROPHILS # 6.2 K/mm3 (1.8-7.7); NEUTROPHILS % 61.9 % (36.0-66.0); PLATELET COUNT, AUTOMATED 289 k/mm3 (150-450); RED CELL DISTRIBUTION WIDTH 14.4 % (11.5-14.5)
[2016-11-12 18:24] LABS: MICROSCOPIC INDICATED? NO (NO)
--- NOTE | 2016-11-12 18:38 | REP ---
Clinical: Left flank pain with history of chronic medical renal disease. Technique: Real time cho scale ultrasound examination using curved array transducer. Findings: The bilateral kidneys demonstrate increased medullary echogenicity suggesting medullary sponge kidney and punctate nonobstructing intrarenal calculi without evidence for hydronephrosis or renal mass lesion. The right kidney measures 11.3 x 5.0 x 3.6 cm and includes 1.2 cm upper pole and 1.3 cm lower pole simple cysts. The left kidney measures 11.4 x 5.1 x 4.4 cm with 1.5 cm upper pole and 2.4 cm lower pole simple cysts. Bladder is incompletely distended but grossly normal in appearance and without wall thickening or obvious mass lesion. Impression: Findings suggesting medullary sponge kidney with nonobstructing punctate renal calculi and few scattered simple cysts. No hydronephrosis appreciated. Signed by Sergio Lyons MD 11/12/2016 06:28 P
[2016-11-12 18:49] LABS: ALBUMIN 3.1 GM/DL (3.2-5.2); ALBUMIN/GLOBULIN RATIO 0.84 (1.00-1.93); ALKALINE PHOSPHATASE 134 U/L (45-117); ALT/SGPT 13 U/L (12-78); ANION GAP 5 MEQ/L (8-16); AST/SGOT 25 U/L (15-37); BILIRUBIN,DIRECT < 0.1 MG/DL (0.0-0.2); BILIRUBIN,TOTAL 0.3 MG/DL (0.2-1.0); BLOOD UREA NITROGEN 14 MG/DL (7-18); CALCIUM LEVEL 8.8 MG/DL (8.5-10.1); CARBON DIOXIDE LEVEL 31 MEQ/L (21-32); CHLORIDE LEVEL 107 MEQ/L (98-107); CREATININE FOR GFR 0.52 MG/DL (0.55-1.02); GLOMERULAR FILTRATION RATE > 60.0 (>58); GLUCOSE, FASTING 90 MG/DL (70-105); SODIUM LEVEL 143 MEQ/L (136-145); TOTAL PROTEIN 6.8 GM/DL (6.4-8.2)
[2016-11-12] MEDS ORDERED: TAMSULOSIN 0.4 MG CAP PO ONE (19:30)
[2016-11-12] MEDS ORDERED: BACTRIM 160MG/800MG DS TAB PO ONE (19:30)
[2016-11-12] MEDS ORDERED: BACT800T5 PO (19:33)
[2016-11-12] MEDS ORDERED: FLOM5CAP PO (19:33)
[2016-11-12] MEDS ORDERED: ZOFR4TAB3 PO (19:33)
[2016-11-12] MEDS ORDERED: DIFL200T PO (19:57)
[2016-11-12 19:59] VITALS: BP 111/62
--- NOTE | 2016-11-13 08:46 | ED PDOC ---
Post-Departure Follow-Up certified letter sent regarding radiology report Elvie Tobar MD Nov 13, 2016 08:46
== END 2016-11-12 20:09 | disposition home or self-care (01) ==
LOC: M ED 16:43
DX: N30.90 Cystitis, unspecified without hematuria (principal); N20.0 Calculus of kidney; N28.1 Cyst of kidney, acquired; R10.9 Unspecified abdominal pain; N18.9 Chronic kidney disease, unspecified; E11.22 Type 2 diabetes mellitus with diabetic chronic kidney disease; F41.9 Anxiety disorder, unspecified; R56.9 Unspecified convulsions; G90.50 Complex regional pain syndrome I, unspecified; F17.210 Nicotine dependence, cigarettes, uncomplicated; Z87.440 Personal history of urinary (tract) infections; Z91.018 Allergy to other foods; Z88.8 Allergy status to other drugs, medicaments and biological substances; Z79.899 Other long term (current) drug therapy; Z79.891 Long term (current) use of opiate analgesic
CPT/HCPCS: 76775; 80048; 80076; 81001; 84703; 85025; 87086; 96374; 96375; 96376; 99283; J2405

== ENCOUNTER → 2016-12-16 | Outpatient (CLI) | payer OTHER, MEDICARE ==
[~2016-12-16] MED LIST changes: +BACT800T5 PO; +DIFL200T PO; +FLOM5CAP PO; +LAMO100T; +ZOFR4TAB3 PO
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
== END ==
LOC: M PAIN 09:30
PROVIDERS: ATTEND Anesthesiology
DX: G89.29 Other chronic pain (principal); M96.1 Postlaminectomy syndrome, not elsewhere classified; M54.16 Radiculopathy, lumbar region; M46.1 Sacroiliitis, not elsewhere classified; F43.10 Post-traumatic stress disorder, unspecified; R56.9 Unspecified convulsions; F32.9 Major depressive disorder, single episode, unspecified; F41.9 Anxiety disorder, unspecified; N18.2 Chronic kidney disease, stage 2 (mild); E05.00 Thyrotoxicosis with diffuse goiter without thyrotoxic crisis or storm; Z87.442 Personal history of urinary calculi; F17.210 Nicotine dependence, cigarettes, uncomplicated; Z91.018 Allergy to other foods; Z88.6 Allergy status to analgesic agent; Z88.8 Allergy status to other drugs, medicaments and biological substances

== ENCOUNTER 2017-02-17 19:00 | Emergency (ER) | payer MEDICARE, MEDICAID ==
[~2017-02-17] VITALS: Ht 160 cm; Wt 53.2 kg
[2017-02-17] MEDS ORDERED: VENL150C43 PO (19:21)
[2017-02-17] MEDS ORDERED: BACT800T5 PO (19:21)
[2017-02-17] MEDS ORDERED: SPIR25TA2 PO (19:21)
[2017-02-17] MEDS ORDERED: MIRT30TA3 PO (19:21)
[2017-02-17] MEDS ORDERED: BENACRE2 EX (19:23)
[2017-02-17] MEDS ORDERED: BENA25TA10 PO (19:23)
[2017-02-17 21:08] LABS: MUCUS, URINE RFX SMALL (NEGATIVE); SPECIFIC GRAVITY UR AUTO RFX 1.019 (1.002-1.035); SQUAM EPITHELIAL CELL UR AURFX 8 /HPF (0-6)
[2017-02-17] MEDS ORDERED: PRED20TA PO (21:13)
[2017-02-17] MEDS ORDERED: predniSONE 20 MG TAB PO ONE (21:15)
[2017-02-17 21:32] VITALS: BP 124/75
[2017-02-19] MEDS ORDERED: CIPR-249 PO (23:39)
[2017-02-19] MEDS ORDERED: KEFL500C17 PO (23:58)
[2017-02-20] MEDS ORDERED: PROAAER10 INH
== END 2017-02-17 21:39 | disposition home or self-care (01) ==
LOC: M ED 19:00
DX: T36.8X5A Adverse effect of other systemic antibiotics, initial encounter (principal); R21 Rash and other nonspecific skin eruption; Z79.2 Long term (current) use of antibiotics; E11.9 Type 2 diabetes mellitus without complications; F43.10 Post-traumatic stress disorder, unspecified; N80.9 Endometriosis, unspecified; F17.210 Nicotine dependence, cigarettes, uncomplicated; Q61.5 Medullary cystic kidney; G90.50 Complex regional pain syndrome I, unspecified; Z79.899 Other long term (current) drug therapy; Z91.018 Allergy to other foods; Z88.8 Allergy status to other drugs, medicaments and biological substances

== ENCOUNTER 2017-02-19 19:01 | Emergency (ER) | payer MEDICARE, MEDICAID ==
[2017-02-19] MEDS: NS 1,000 ML IV (21:30)
[2017-02-19 22:03] LABS: BASO % 0.1 % (0.0-1.0); EOS % 0.1 % (0.0-3.0); IMMATURE GRANULOCYTE # 0.1 10^3/uL (0-0); IMMATURE GRANULOCYTE % 0.8 % (0-0); LYMPH # 1.3 10^3/uL (1.5-4.5); LYMPH % 10.5 % (24.0-44.0); MEAN CORPUSCULAR HEMOGLOBIN 32.3 pg (27.0-33.0); MEAN CORPUSCULAR HGB CONC 33.3 g/dl (32.0-36.5); MONO # 0.2 10^3/uL (0.0-0.8); MONO % 1.8 % (0.0-5.0); NEUTROPHILS # 10.7 10^3/uL (1.8-7.7); NEUTROPHILS % 86.7 % (36.0-66.0); PLATELET COUNT, AUTOMATED 250 10^3/uL (150-450); RED CELL DISTRIBUTION WIDTH 14.1 % (11.5-14.5); WHITE BLOOD COUNT 12.3 10^3/uL (4.0-10.0)
[2017-02-19 22:26] LABS: ALBUMIN 3.8 GM/DL (3.2-5.2); ALBUMIN/GLOBULIN RATIO 0.95 (1.00-1.93); ALKALINE PHOSPHATASE 90 U/L (45-117); ALT/SGPT 15 U/L (12-78); ANION GAP 7 MEQ/L (8-16); AST/SGOT 8 U/L (7-37); BILIRUBIN,TOTAL 0.1 MG/DL (0.2-1.0); BLOOD UREA NITROGEN 30 MG/DL (7-18); CARBON DIOXIDE LEVEL 27 MEQ/L (21-32); CHLORIDE LEVEL 103 MEQ/L (98-107); GLOMERULAR FILTRATION RATE > 60.0 (>58); GLUCOSE, FASTING 124 MG/DL (70-105); POTASSIUM SERUM 4.5 MEQ/L (3.5-5.1); SODIUM LEVEL 137 MEQ/L (136-145); TOTAL PROTEIN 7.8 GM/DL (6.4-8.2)
[2017-02-19] MEDS: ONDANSETRON 4MG/2ML VIAL (J2405) IV (22:46)
[2017-02-20] MEDS: diphenhydrAMINE INJ 50MG/ML VIAL (J1200) IV (00:08)
[2017-02-20] MEDS: methylPREDNISolone INJ 125 MG/2 ML VIAL (J2930) IV (00:08)
[2017-02-20] MEDS: MAGNESIUM CITRATE 300 ML BTL PO (00:09)
[2017-02-20] MEDS: CIPROFLOXACIN 500 MG TAB PO (00:10)
[2017-02-20] MEDS: hydrOXYzine 10 MG TAB PO (00:41)
== END 2017-02-20 00:50 | disposition home or self-care (01) ==
LOC: M ED 02-20 00:50
DX: N10 Acute pyelonephritis (principal); K59.00 Constipation, unspecified; T78.40XA Allergy, unspecified, initial encounter; Z72.0 Tobacco use
CPT/HCPCS: J1200

== ENCOUNTER 2017-05-07 20:52 | Inpatient (IN) | payer MEDICARE, MEDICAID ==
[2017-05-07] MEDS: NS 1,000 ML IV (21:15)
[2017-05-07 21:30] LABS: METHEMOGLOBIN 0.5 % (0.0-2.0)
[2017-05-07 21:37] LABS: BASO % 0.5 % (0.0-1.0); EOS # 0.1 10^3/uL (0.0-0.50); EOS % 0.8 % (0.0-3.0); HEMATOCRIT 39.6 % (36.0-47.0); HEMOGLOBIN 13.4 g/dl (12.0-16.0); IMMATURE GRANULOCYTE % 0.4 % (0-3.0); LYMPH # 2.8 10^3/uL (1.5-4.5); LYMPH % 35.8 % (24.0-44.0); MEAN CORPUSCULAR HEMOGLOBIN 31.5 pg (27.0-33.0); MEAN CORPUSCULAR HGB CONC 33.8 g/dl (32.0-36.5); MONO # 0.8 10^3/uL (0.0-0.8); MONO % 10.8 % (0.0-5.0); NEUTROPHILS % 51.7 % (36.0-66.0); PLATELET COUNT, AUTOMATED 301 10^3/uL (150-450); RED BLOOD COUNT 4.26 10^6/uL (4.00-5.40); RED CELL DISTRIBUTION WIDTH 14.2 % (11.5-14.5); WHITE BLOOD COUNT 7.8 10^3/uL (4.0-10.0)
[2017-05-07 21:46] LABS: AMMONIA < 10 uMOL/L (<32)
[2017-05-07 21:48] LABS: CONTROL LINE HCG INT CTR LINE PRESENT; HCG, SERUM QUALITATIVE NEGATIVE (NEGATIVE)
[2017-05-07 21:50] LABS: OSMOLALITY SERUM 305 MOSM/KG (275-295)
[2017-05-07 21:56] LABS: LACTIC ACID SEPSIS PROTOCOL 1.2 MMOL/L (0.4-2.0)
[2017-05-07 22:00] LABS: ABG BASE EXCESS -2.1 (-2.0-2.0); ABG O2 SATURATION 99.9 % (95.0-99.0); ABG PARTIAL PRESSURE CO2 35.6 mmHg (35.0-45.0); ABG PARTIAL PRESSURE O2 341.8 mmHg (75.0-100.0); ABG STANDARD HCO3 22.8 MEQ/L (22.0-26.0); ABG TOTAL CO2 23.1 MEQ/L (22.0-29.0); ABG pH (ARTERIAL) 7.409 UNITS (7.350-7.450)
[2017-05-07 22:03] LABS: ACETAMINOPHEN LEVEL < 2.0 UG/ML (10.0-30.0); ALBUMIN 4.6 GM/DL (3.2-5.2); ALBUMIN/GLOBULIN RATIO 1.35 (1.00-1.93); ALKALINE PHOSPHATASE 83 U/L (45-117); ALT/SGPT 16 U/L (12-78); ANION GAP 5 MEQ/L (8-16); AST/SGOT 10 U/L (7-37); BILIRUBIN,DIRECT < 0.1 MG/DL (0.0-0.2); BILIRUBIN,TOTAL 0.7 MG/DL (0.2-1.0); BLOOD UREA NITROGEN 20 MG/DL (7-18); CALCIUM LEVEL 8.8 MG/DL (8.5-10.1); CARBON DIOXIDE LEVEL 28 MEQ/L (21-32); CHLORIDE LEVEL 112 MEQ/L (98-107); CREATININE FOR GFR 0.59 MG/DL (0.55-1.30); FREE THYROXINE INDEX 3.4 % (1.3-4.8); GLOMERULAR FILTRATION RATE > 60.0 (>58); GLUCOSE, FASTING 95 MG/DL (70-100); POTASSIUM SERUM 4.2 MEQ/L (3.5-5.1); SALICYLATE LEVEL 4.5 MG/DL (5.0-30.0); SODIUM LEVEL 145 MEQ/L (136-145); T UPTAKE 33 % (30-39); THYROXINE (T4) 10.4 UG/DL (4.5-12.0); TROPONIN I < 0.02 NG/ML (< 0.10)
[2017-05-07 22:09] LABS: CPK CREATINE PHOSPHOKINASE 47 U/L (26-192); MB/CK RELATIVE INDEX 2.12 (< OR =4); THYROID STIMULATING HORMONE 0.465 uIU/ML (0.358-3.740)
[2017-05-07 22:12] LABS: ETHYL ALCOHOL (ETHANOL) < 0.003 % (0.000-0.010)
[2017-05-07 23:14] LABS: BEDSIDE GLUCOSE 123 MG/DL (70-105)
[2017-05-07 23:23] LABS: KETONE, URINE AUTO RFX TRACE mg/dL (NEGATIVE); LEUKOCYTE ESTERASE UR AUTO RFX NEGATIVE (NEGATIVE); NITRITE, URINE AUTO RFX NEGATIVE (NEGATIVE); RBC, URINE AUTO RFX 2 /HPF (0-3); SPECIFIC GRAVITY UR AUTO RFX 1.021 (1.002-1.035); SQUAM EPITHELIAL CELL UR AURFX 0 /HPF (0-6); WBC, URINE AUTO RFX 4 /HPF (0-3)
[2017-05-07 23:35] LABS: AMPHETAMINES LEVEL URINE POSITIVE (NEGATIVE); BARBITURATES URINE NEGATIVE (NEGATIVE); BENZODIAZEPINES URINE POSITIVE (NEGATIVE); CANNABINOIDS URINE NEGATIVE (NEGATIVE); COCAINE METABOLITE URINE POSITIVE (NEGATIVE); METHADONE URINE NEGATIVE (NEGATIVE); OPIATES URINE POSITIVE (NEGATIVE); PHENCYCLIDINE URINE NEGATIVE (NEGATIVE)
[2017-05-08] MEDS: LR 1,000 ML IV (00:14)
[2017-05-08] MEDS ORDERED: METAL LOCK LOOP XX (03:05)
[2017-05-08] MEDS: NS 1,000 ML IV (03:15)
[2017-05-08 05:01] LABS: BEDSIDE GLUCOSE 108 MG/DL (70-105)
[2017-05-08] MEDS: HEPARIN SOD (PORCINE) 5000 UNITS/ML VIAL SC ×2 (05:13→13:36)
[2017-05-08] MEDS: DOCUSATE SODIUM 100 MG CAP PO ×3 (09:00→19:59)
[2017-05-08] MEDS ORDERED: LORazepam 2 MG/ML VIAL (J2060) IM (09:12)
[2017-05-08] MEDS: LORazepam 2 MG/ML VIAL (J2060) IV (09:32)
[2017-05-08] MEDS: OLANZapine ORAL DISINTEGRATING TAB 5MG SL (10:00)
[2017-05-08] MEDS ORDERED: OLANZapine ORAL DISINTEGRATING TAB 5MG PO (11:15)
[2017-05-08] MEDS: LORazepam 1 MG TAB PO ×2 (13:36→19:55)
[2017-05-08 14:51] LABS: BEDSIDE GLUCOSE 118 MG/DL (70-105)
[2017-05-08] MEDS: GABAPENTIN 300 MG CAP PO ×3 (15:32→19:54)
[2017-05-08] MEDS: lamoTRIgine 100MG TAB PO (15:32)
[2017-05-08] MEDS: ACETAMINOPHEN TAB 650MG DOSE (2X325MG) PO ×3 (15:49→21:42)
[2017-05-08] MEDS: ONDANSETRON 4MG/2ML VIAL (J2405) IV (15:49)
[2017-05-08] MEDS: NICOTINE 21MG/24HR 1 EA TRANSDERMAL TD (17:43)
[2017-05-08] MEDS: VALPROIC ACID 250 MG CAP PO (19:54)
[2017-05-08] MEDS ORDERED: VALPROIC ACID 250 MG CAP PO (21:00)
[2017-05-08 22:36] LABS: BEDSIDE GLUCOSE 116 MG/DL (70-105)
[2017-05-09] MEDS ORDERED: NICOTINE 21MG/24HR 1 EA TRANSDERMAL TD (09:00)
== END 2017-05-08 23:05 | DRG 917 ==
LOC: M ED 20:52 → M ED INP 05-08 03:08 → M ICU 05-08 04:35
PROVIDERS: Hospitalist
DX: T58.02XA Toxic effect of carbon monoxide from motor vehicle exhaust, intentional self-harm, initial encounter (principal); G92 Toxic encephalopathy; T50.902A Poisoning by unspecified drugs, medicaments and biological substances, intentional self-harm, initial encounter; E03.9 Hypothyroidism, unspecified; F41.9 Anxiety disorder, unspecified; F32.9 Major depressive disorder, single episode, unspecified; F43.10 Post-traumatic stress disorder, unspecified; N18.2 Chronic kidney disease, stage 2 (mild); F19.159 Other psychoactive substance abuse with psychoactive substance-induced psychotic disorder, unspecified; F15.10 Other stimulant abuse, uncomplicated; F14.10 Cocaine abuse, uncomplicated; F17.210 Nicotine dependence, cigarettes, uncomplicated; G62.9 Polyneuropathy, unspecified; M54.5 Low back pain; Z87.442 Personal history of urinary calculi; Y92.015 Private garage of single-family (private) house as the place of occurrence of the external cause; Z79.899 Other long term (current) drug therapy; Z88.2 Allergy status to sulfonamides; Z88.6 Allergy status to analgesic agent; Z88.8 Allergy status to other drugs, medicaments and biological substances

== ENCOUNTER → 2017-07-11 | Outpatient (REF) | payer MEDICARE, MEDICAID | LOC: M SFHCPLAZ 11:37 | DX: L73.9 Follicular disorder, unspecified (principal) | CPT/HCPCS: 87070; 87077; 87186 ==

== ENCOUNTER 2017-08-23 17:01 | Emergency (ER) | payer MEDICARE, MEDICAID ==
[2017-08-23] MEDS: NS 1,000 ML IV (17:32)
[2017-08-23] MEDS: METOCLOPRAMIDE INJ 10MG/2ML VIAL (J2765) IV (17:32)
[2017-08-23 17:36] LABS: BASO % 0.5 % (0.0-1.0); EOS # 0.1 10^3/uL (0.0-0.50); EOS % 1.5 % (0.0-3.0); HEMATOCRIT 32.9 % (36.0-47.0); HEMOGLOBIN 11.1 g/dl (12.0-15.5); IMMATURE GRANULOCYTE % 0.3 % (0-3.0); LYMPH # 2.5 10^3/uL (1.5-4.5); LYMPH % 34.4 % (24.0-44.0); MEAN CORPUSCULAR HEMOGLOBIN 31.4 pg (27.0-33.0); MEAN CORPUSCULAR HGB CONC 33.7 g/dl (32.0-36.5); MEAN CORPUSCULAR VOLUME 92.9 fl (80.0-96.0); MONO # 0.6 10^3/uL (0.0-0.8); MONO % 8.1 % (0.0-5.0); NEUTROPHILS # 4.1 10^3/uL (1.8-7.7); NEUTROPHILS % 55.2 % (36.0-66.0); PLATELET COUNT, AUTOMATED 223 10^3/uL (150-450); RED BLOOD COUNT 3.54 10^6/uL (4.00-5.40); RED CELL DISTRIBUTION WIDTH 15.3 % (11.5-14.5); WHITE BLOOD COUNT 7.4 10^3/uL (4.0-10.0)
[2017-08-23 17:37] LABS: VENOUS BASE EXCESS 1.2 (-2.0-2.0); VENOUS HCO3 25.7 MEQ/L (23.0-27.0); VENOUS O2 SATURATION 98.9 % (60.0-80.0); VENOUS PARTIAL PRESSURE O2 < 10.0 mmHg (30.0-50.0); VENOUS PH 7.425 UNITS (7.330-7.430); VENOUS STANDARD HCO3 25.6 MEQ/L; VENOUS TOTAL CO2 26.9 MEQ/L (24.0-28.0)
[2017-08-23 17:51] LABS: ACETAMINOPHEN LEVEL < 2.0 UG/ML (10.0-30.0); ALBUMIN 3.4 GM/DL (3.2-5.2); ALBUMIN/GLOBULIN RATIO 1.13 (1.00-1.93); ALKALINE PHOSPHATASE 72 U/L (45-117); ALT/SGPT 14 U/L (12-78); ANION GAP 8 MEQ/L (8-16); AST/SGOT 5 U/L (7-37); BILIRUBIN,DIRECT < 0.1 MG/DL (0.0-0.2); BILIRUBIN,TOTAL 0.2 MG/DL (0.2-1.0); BLOOD UREA NITROGEN 12 MG/DL (7-18); CALCIUM LEVEL 8.6 MG/DL (8.5-10.1); CARBON DIOXIDE LEVEL 28 MEQ/L (21-32); CHLORIDE LEVEL 109 MEQ/L (98-107); CPK CREATINE PHOSPHOKINASE 28 U/L (26-192); CREATININE FOR GFR 0.82 MG/DL (0.55-1.30); ETHYL ALCOHOL (ETHANOL) 0.004 % (0.000-0.010); GLOMERULAR FILTRATION RATE > 60.0 (>58); GLUCOSE, FASTING 94 MG/DL (70-100); POTASSIUM SERUM 3.2 MEQ/L (3.5-5.1); SALICYLATE LEVEL 5.2 MG/DL (5.0-30.0); SODIUM LEVEL 145 MEQ/L (136-145); TOTAL PROTEIN 6.4 GM/DL (6.4-8.2); TROPONIN I < 0.02 NG/ML (< 0.10)
[2017-08-23 17:57] LABS: CK-MB VALUE MASS < 1.0 NG/ML (<3.6); MB/CK RELATIVE INDEX 3.57 (< OR =4)
[2017-08-23 18:19] LABS: BEDSIDE GLUCOSE 84 MG/DL (70-105)
[2017-08-23 20:32] LABS: CONTROL LINE HCG INT CTR LINE PRESENT; HCG, SERUM QUALITATIVE NEGATIVE (NEGATIVE)
[2017-08-24 08:30] LABS: BEDSIDE GLUCOSE 95 MG/DL (70-105)
[2017-08-26 12:02] LABS: LAMOTRIGINE (LAMICTAL) 4.5 ug/mL (2.0-20.0)
== END 2017-08-23 18:30 | disposition left against medical advice (07) ==
LOC: M ED 17:01
DX: G40.309 Generalized idiopathic epilepsy and epileptic syndromes, not intractable, without status epilepticus (principal); E11.9 Type 2 diabetes mellitus without complications; G89.29 Other chronic pain; Z91.018 Allergy to other foods; Z88.8 Allergy status to other drugs, medicaments and biological substances; Z88.2 Allergy status to sulfonamides; Z79.899 Other long term (current) drug therapy
CPT/HCPCS: J2765

== ENCOUNTER 2017-10-02 21:01 | Emergency (ER) | payer MEDICARE, MEDICAID ==
[2017-10-03] MEDS: NORCO, ANEXSIA 5/325MG TABLET (HYDROcodone/ACETAMINOPHEN) PO (02:10)
== END 2017-10-03 02:13 | disposition home or self-care (01) ==
LOC: M ED 21:01
DX: S93.401A Sprain of unspecified ligament of right ankle, initial encounter (principal); X50.1XXA Overexertion from prolonged static or awkward postures, initial encounter; Y92.099 Unspecified place in other non-institutional residence as the place of occurrence of the external cause; Y93.9 Activity, unspecified; Y99.9 Unspecified external cause status; Z79.899 Other long term (current) drug therapy; Z88.2 Allergy status to sulfonamides; Z88.6 Allergy status to analgesic agent; Z88.8 Allergy status to other drugs, medicaments and biological substances; Z91.018 Allergy to other foods
CPT/HCPCS: 73630

== ENCOUNTER 2017-10-15 14:31 | Emergency (ER) | payer MEDICARE | END 2017-10-15 14:58 | disposition home or self-care (01) | LOC: M ED 14:31 | DX: Z76.0 Encounter for issue of repeat prescription (principal); F43.10 Post-traumatic stress disorder, unspecified; R56.9 Unspecified convulsions; Z79.899 Other long term (current) drug therapy; Z88.6 Allergy status to analgesic agent; Z88.2 Allergy status to sulfonamides; Z88.8 Allergy status to other drugs, medicaments and biological substances; Z91.018 Allergy to other foods | CPT/HCPCS: 99283 ==

== ENCOUNTER → 2017-12-19 | Outpatient (CLI) | payer OTHER, MEDICAID | LOC: M PAIN 10:45 | DX: M96.1 Postlaminectomy syndrome, not elsewhere classified (principal); M47.816 Spondylosis without myelopathy or radiculopathy, lumbar region; M46.1 Sacroiliitis, not elsewhere classified; N18.2 Chronic kidney disease, stage 2 (mild); E03.9 Hypothyroidism, unspecified; J30.2 Other seasonal allergic rhinitis; E16.2 Hypoglycemia, unspecified; R56.9 Unspecified convulsions; F41.9 Anxiety disorder, unspecified; F32.9 Major depressive disorder, single episode, unspecified; F43.10 Post-traumatic stress disorder, unspecified; Z72.0 Tobacco use; Z79.899 Other long term (current) drug therapy; Z88.1 Allergy status to other antibiotic agents; Z88.6 Allergy status to analgesic agent; Z88.8 Allergy status to other drugs, medicaments and biological substances; Z91.018 Allergy to other foods | CPT/HCPCS: G0463 ==

== ENCOUNTER → 2018-01-23 | Outpatient (CLI) | payer OTHER, MEDICAID ==
[~2018-01-23] MED LIST changes: -ADDE20CA3 PO; -ALBU17IN2 INH; -AMBI10TA PO; -AMIT50TA PO; -BACT800T5 PO; +BUPIVACAINE HCL 0.25% 30 ML VIAL As Ordered; -CARB1TAB20 PO; -CARB20TA PO; -CENTTAB36 PO; -CLON0.5T PO; -CYCL10TA PO; -DIFL150T PO; -DIFL200T PO; -DIPY75TA PO; -FLOM5CAP PO; -FURO20TA2 PO; -GABA600T PO; -HYDR25TAB PO; -IBUP1TAB7 PO; +ISOVUE-M 300 61% 15ML VIAL (Q9967) As Ordered; -KLON1TAB PO; -LAMO100T; -LEVA1TAB2 PO; -LIDO1OIN2 TOP; +LIDOCAINE 1% SDV INJ 30 ML VIAL As Ordered; -MAGN400T5 PO; -MIRT30TA3 PO; -OXYC-405 PO; -OXYC1TAB23 PO; -ROBA500T PO; +TRIAMCINOLONE ACETONIDE SUSP 40 MG/ML VIAL (J3301) As Ordered; -VENL150C43 PO; -ZANA4TAB PO; -ZOFR4TAB3 PO; +diazePAM 5 MG TAB As Ordered; +oxyCODONE 5MG TAB As Ordered
== END ==
LOC: M PAIN 13:15
DX: M46.1 Sacroiliitis, not elsewhere classified (principal); M54.5 Low back pain; M96.1 Postlaminectomy syndrome, not elsewhere classified; R56.9 Unspecified convulsions; E11.22 Type 2 diabetes mellitus with diabetic chronic kidney disease; N18.2 Chronic kidney disease, stage 2 (mild); E03.9 Hypothyroidism, unspecified; J30.2 Other seasonal allergic rhinitis; F41.9 Anxiety disorder, unspecified; F32.9 Major depressive disorder, single episode, unspecified; F43.10 Post-traumatic stress disorder, unspecified; F17.210 Nicotine dependence, cigarettes, uncomplicated; Z79.899 Other long term (current) drug therapy; Z86.39 Personal history of other endocrine, nutritional and metabolic disease
CPT/HCPCS: G0463

== ENCOUNTER → 2018-03-01 | Outpatient (REF) | payer MEDICAID, OTHER ==
[~2018-03-01] MED LIST changes: +ADDE20CA3 PO; +ALBU17IN2 INH; +ALDA50TA2 PO; +AMBI10TA PO; +AMIT50TA PO; +ARIP5TA PO; +ATOM40CA PO; +BACT800T5 PO; +BENA25TA10 PO; +BISMUTH SUBSALICYLATE PO; -BUPIVACAINE HCL 0.25% 30 ML VIAL As Ordered; +CARB1TAB20 PO; +CARB20TA PO; +CENTTAB36 PO; +CIPR-249 PO; +CLON0.5T8 PO; +CLON1TAB8 PO; +CYCL10TA PO; +DEXTROAMP-AMPHETAMIN PO; +DIFL150T PO; +DIFL200T PO; +DIPY75TA PO; +DOXY100T PO; +FIRS50SO PO; +FLOM0.4C39 PO; +FURO20TA2 PO; +GABA-843; +GABA-843 PO; +GABA-845 PO; +GABA600T4 PO; +HYDR25TAB PO; +IBUP1TAB7 PO; -ISOVUE-M 300 61% 15ML VIAL (Q9967) As Ordered; +KEFL500C17 PO; +KLON1TAB PO; +LAMO100T; +LAMO100T PO; +LAMO10TA PO; +LAMO150T2; +LAMO1TAB; +LEVA1TAB2 PO; +LEVOTAB10; +LIDO1OIN2 TOP; -LIDOCAINE 1% SDV INJ 30 ML VIAL As Ordered; +MAGN400T5 PO; +METH1TAB40 PO; +MIRT15TA3 PO; +MIRT30TA3 PO; +NALT50TA4 PO; +OLAN15TA; +ONDA4TAB5 PO; +OXYC-405 PO; +OXYC1TAB23 PO; +OXYC20TA2; +OXYC20TA40 PO; +PATIENT COMMENTS; +PRED20TA PO; +PROAAER10 INH; +ROBA500T PO; +ROZE8TAB16 PO; +SPIR-10; +SPIR-10 PO; +SPIR50TA4 PO; -TRIAMCINOLONE ACETONIDE SUSP 40 MG/ML VIAL (J3301) As Ordered; +VALP1CAP2; +VALP1CAP2 PO; +VENL150C43 PO; +VENL75CA2 PO; +XYZA5TAB2 PO; +ZANA4TAB PO; +ZOFR4TAB14 PO; +ZOLP10TA2; +[UNRECOGNIZED DRUG - CODE] EX; +[UNRECOGNIZED DRUG - CODE] PO; -diazePAM 5 MG TAB As Ordered; -oxyCODONE 5MG TAB As Ordered
== END ==
LOC: M LAB REF 19:20
PROVIDERS: ATTEND Surgery
DX: D17.0 Benign lipomatous neoplasm of skin and subcutaneous tissue of head, face and neck (principal)

== ENCOUNTER 2018-03-18 17:56 | Emergency (ER) | payer MEDICAID, MEDICARE, OTHER ==
[~2018-03-18] VITALS: Ht 160 cm; Wt 65.9 kg
[~2018-03-18 17:56] MED LIST changes: -DEXTROAMP-AMPHETAMIN PO; -GABA-843 PO; -LAMO150T2; -LEVOTAB10
[2018-03-18 17:57] VITALS: BP 171/77
[2018-03-18] MEDS ORDERED: LEVOTAB10 (18:08)
[2018-03-18] MEDS ORDERED: GABA-845 PO (18:08)
[2018-03-18] MEDS ORDERED: ZOLP10TA2 (18:08)
[2018-03-18] MEDS ORDERED: LAMO150T2 (18:08)
[2018-03-18] MEDS ORDERED: SPIR-10 (18:08)
[2018-03-18] MEDS ORDERED: GABA-843 PO (18:08)
[2018-03-18] MEDS ORDERED: DEXTROAMP-AMPHETAMIN PO (18:08)
[2018-03-18] MEDS ORDERED: METH1TAB40 PO (18:08)
[2018-03-18] MEDS ORDERED: CEPHALEXIN 500 MG CAP PO ONE (18:45)
[2018-03-18] MEDS ORDERED: KEFL500C17 PO (18:47)
== END 2018-03-18 19:00 | disposition home or self-care (01) ==
LOC: M ED 17:56
DX: R22.31 Localized swelling, mass and lump, right upper limb (principal); L08.9 Local infection of the skin and subcutaneous tissue, unspecified; S50.861A Insect bite (nonvenomous) of right forearm, initial encounter; W57.XXXA Bitten or stung by nonvenomous insect and other nonvenomous arthropods, initial encounter; Y92.89 Other specified places as the place of occurrence of the external cause; E11.9 Type 2 diabetes mellitus without complications; N18.2 Chronic kidney disease, stage 2 (mild); E05.90 Thyrotoxicosis, unspecified without thyrotoxic crisis or storm; G90.50 Complex regional pain syndrome I, unspecified; Z79.899 Other long term (current) drug therapy; Z88.1 Allergy status to other antibiotic agents; Z88.2 Allergy status to sulfonamides; Z88.8 Allergy status to other drugs, medicaments and biological substances; Z91.018 Allergy to other foods; F17.210 Nicotine dependence, cigarettes, uncomplicated

== ENCOUNTER → 2018-03-27 | Outpatient (CLI) | payer OTHER, MEDICAID ==
[~2018-03-27] MED LIST changes: +DEXTROAMP-AMPHETAMIN PO; +GABA-843 PO; +LAMO150T2; +LEVOTAB10
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
== END ==
LOC: M PAIN 15:00
PROVIDERS: ATTEND Anesthesiology
DX: M47.816 Spondylosis without myelopathy or radiculopathy, lumbar region (principal); G89.29 Other chronic pain; R56.9 Unspecified convulsions; E03.9 Hypothyroidism, unspecified; J30.2 Other seasonal allergic rhinitis; F43.10 Post-traumatic stress disorder, unspecified; F32.9 Major depressive disorder, single episode, unspecified; F41.9 Anxiety disorder, unspecified; F17.210 Nicotine dependence, cigarettes, uncomplicated; Z79.899 Other long term (current) drug therapy; Z88.1 Allergy status to other antibiotic agents; Z88.6 Allergy status to analgesic agent; Z88.8 Allergy status to other drugs, medicaments and biological substances; Z91.038 Other insect allergy status; Z91.018 Allergy to other foods

== ENCOUNTER → 2018-09-12 | Outpatient (CLI) | payer MEDICAID, OTHER ==
[~2018-09-12] MED LIST changes: +ARIP1TAB6 PO; -ARIP5TA PO; +LAMO-11; +LAMO100T80 PO; -LAMO10TA PO; -LAMO1TAB; +LEVOTAB10 PO; +ONDA4TAB6 PO; +VENL150T24 PO
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
== END ==
LOC: M PAIN 09:30
PROVIDERS: ATTEND Anesthesiology
DX: M47.816 Spondylosis without myelopathy or radiculopathy, lumbar region (principal); G89.29 Other chronic pain; Z86.59 Personal history of other mental and behavioral disorders; G40.909 Epilepsy, unspecified, not intractable, without status epilepticus; N18.2 Chronic kidney disease, stage 2 (mild); F17.210 Nicotine dependence, cigarettes, uncomplicated; Z88.1 Allergy status to other antibiotic agents; Z88.6 Allergy status to analgesic agent; Z88.8 Allergy status to other drugs, medicaments and biological substances; Z91.018 Allergy to other foods; Z86.14 Personal history of Methicillin resistant Staphylococcus aureus infection; Z79.899 Other long term (current) drug therapy

== ENCOUNTER 2018-10-26 12:48 | Emergency (ER) | payer MEDICAID, MEDICARE, OTHER ==
[~2018-10-26] VITALS: Ht 160 cm; Wt 96.6 kg
[~2018-10-26 12:48] MED LIST changes: -LEVOTAB10 PO; -ONDA4TAB6 PO; -VENL150T24 PO
[2018-10-26] MEDS ORDERED: FURO20TA2 PO (13:04)
[2018-10-26] MEDS ORDERED: HYDR25TAB PO (13:04)
[2018-10-26] MEDS ORDERED: VENL150T24 PO (13:05)
[2018-10-26] MEDS ORDERED: LEVOTAB10 PO (13:07)
--- NOTE | 2018-10-26 14:43 | REP ---
CT of the abdomen pelvis without IV or bowel, fast for right flank pain: There are no right renal calculi. There are no right ureteral calculi. There are no bladder calculi. There is no right hydronephrosis. There is a nonobstructive left renal calculus. There is no left ureteral calculus. There is no left hydronephrosis. There is a 2.2 cm cyst at the lower pole of the left kidney. There is no cholelithiasis. The appendix is unremarkable. The uterus and adnexa are unremarkable. No adnexal cysts are identified. There is no ascites. The unenhanced hepatic parenchyma is unremarkable. The gallbladder, pancreas, spleen, adrenals, abdominal aorta are unremarkable. There is no bowel distension or obstruction. The mesentery is unremarkable. There is no ascites or adenopathy. Impression: Essentially negative CT study of the abdomen pelvis except for a nonobstructive left renal calculus and a left renal cyst. Electronically Signed by Vamshi Cavazos MD 10/26/2018 02:34 P
[2018-10-26 14:51] LABS: BASO % 0.4 % (0.0-1.0); EOS # 0.2 10^3/uL (0.0-0.50); HEMATOCRIT 37.6 % (36.0-47.0); HEMOGLOBIN 12.6 g/dl (12.0-15.5); LYMPH % 27.8 % (24.0-44.0); MEAN CORPUSCULAR HEMOGLOBIN 33.4 pg (27.0-33.0); MEAN CORPUSCULAR HGB CONC 33.5 g/dl (32.0-36.5); MEAN CORPUSCULAR VOLUME 99.7 fl (80.0-96.0); MONO # 0.5 10^3/uL (0.0-0.8); MONO % 6.8 % (0.0-5.0); NEUTROPHILS # 4.6 10^3/uL (1.8-7.7); NEUTROPHILS % 62.7 % (36.0-66.0); PLATELET COUNT, AUTOMATED 336 10^3/uL (150-450); RED BLOOD COUNT 3.77 10^6/uL (4.00-5.40); WHITE BLOOD COUNT 7.3 10^3/uL (4.0-10.0)
[2018-10-26 15:06] LABS: ALBUMIN 4.2 GM/DL (3.2-5.2); ALT/SGPT 26 U/L (12-78); BILIRUBIN,DIRECT < 0.1 MG/DL (0.0-0.2); BILIRUBIN,TOTAL 0.3 MG/DL (0.2-1.0); BLOOD UREA NITROGEN 13 MG/DL (7-18); CALCIUM LEVEL 9.1 MG/DL (8.5-10.1); CARBON DIOXIDE LEVEL 25 MEQ/L (21-32); CHLORIDE LEVEL 107 MEQ/L (98-107); CREATININE FOR GFR 0.76 MG/DL (0.55-1.30); GLOMERULAR FILTRATION RATE > 60.0 (>58); GLUCOSE, FASTING 103 MG/DL (70-100); LIPASE 93 U/L (73-393); POTASSIUM SERUM 4.3 MEQ/L (3.5-5.1); SODIUM LEVEL 142 MEQ/L (136-145); TOTAL PROTEIN 7.6 GM/DL (6.4-8.2)
[2018-10-26] MEDS ORDERED: FLOM0.4C39 PO (15:15)
[2018-10-26] MEDS ORDERED: ONDA4TAB6 PO (15:15)
[2018-10-26 15:29] VITALS: BP 136/84
== END 2018-10-26 15:33 | disposition home or self-care (01) ==
LOC: M ED 12:48
DX: N28.1 Cyst of kidney, acquired (principal); N20.0 Calculus of kidney; R10.9 Unspecified abdominal pain; E11.9 Type 2 diabetes mellitus without complications; Z87.442 Personal history of urinary calculi; Z87.448 Personal history of other diseases of urinary system; E04.1 Nontoxic single thyroid nodule; N83.299 Other ovarian cyst, unspecified side; F41.9 Anxiety disorder, unspecified; F32.9 Major depressive disorder, single episode, unspecified; F43.10 Post-traumatic stress disorder, unspecified; N18.2 Chronic kidney disease, stage 2 (mild); Z86.19 Personal history of other infectious and parasitic diseases; Z72.0 Tobacco use; Z79.899 Other long term (current) drug therapy; Z91.018 Allergy to other foods; Z88.6 Allergy status to analgesic agent; Z88.2 Allergy status to sulfonamides; Z88.8 Allergy status to other drugs, medicaments and biological substances

== ENCOUNTER 2019-12-27 12:55 | Emergency (ER) | payer MEDICARE ==
[~2019-12-27] VITALS: Ht 160 cm; Wt 62.5 kg
[~2019-12-27 12:55] MED LIST changes: -ATOM40CA PO; +ATOM40CA16 PO; +CLON0.5T2 PO; -CLON0.5T8 PO; +CYCL-707 PO; -CYCL10TA PO; -LAMO100T; -LAMO100T PO; +LAMO100T3; +LAMO100T3 PO; -LAMO150T2; +LAMO150T3 PO; +LEVOTAB10 PO; +ONDA-83 PO; -ONDA4TAB5 PO; +ONDA4TAB6 PO; -VALP1CAP2; +VENL150T24 PO; +ZOLP10TA2 PO
[2019-12-27 13:29] LABS: BASO % 0.4 % (0.0-1.0); EOS # 0.1 10^3/uL (0.0-0.5); EOS % 0.9 % (0.0-3.0); HEMATOCRIT 41.8 % (36.0-47.0); HEMOGLOBIN 13.4 g/dl (12.0-15.5); LYMPH # 1.9 10^3/uL (1.5-5.0); LYMPH % 28.1 % (24.0-44.0); MEAN CORPUSCULAR HEMOGLOBIN 32.8 pg (27.0-33.0); MEAN CORPUSCULAR HGB CONC 32.1 g/dl (32.0-36.5); MEAN CORPUSCULAR VOLUME 102.5 fl (80.0-96.0); MONO # 0.4 10^3/uL (0.0-0.8); MONO % 5.1 % (0.0-5.0); NEUTROPHILS # 4.5 10^3/uL (1.5-8.5); NEUTROPHILS % 65.4 % (36.0-66.0); PLATELET COUNT, AUTOMATED 283 10^3/uL (150-450); RED BLOOD COUNT 4.08 10^6/uL (4.00-5.40); WHITE BLOOD COUNT 6.9 10^3/uL (4.0-10.0)
[2019-12-27] MEDS ORDERED: ONDANSETRON 4MG/2ML VIAL IV ONE (13:30)
[2019-12-27 14:00] LABS: ALBUMIN 3.8 GM/DL (3.2-5.2); ALT/SGPT 18 U/L (12-78); BILIRUBIN,DIRECT < 0.1 MG/DL (0.0-0.2); BILIRUBIN,TOTAL 0.3 MG/DL (0.2-1.0); LIPASE 54 U/L (73-393); TOTAL PROTEIN 7.1 GM/DL (6.4-8.2)
[2019-12-27] MEDS ORDERED: KETOROLAC 30 MG/ML 1ML VIAL IV ONE (14:00)
--- NOTE | 2019-12-27 14:54 | REP ---
INDICATION: left flank pain; hx of polycystic kidney/stones. COMPARISON: 11/12/2016. TECHNIQUE: Real-time sonographic evaluation of the kidneys is performed. FINDINGS: Renal cortical echogenicity pattern is normal bilaterally and contours are smooth. There is no evidence of hydronephrosis. Two cysts are seen in the lower pole of the right kidney measuring 8 mm and 1.4 cm in diameter. There is a cyst of the lower pole of the left kidney 2.1 cm in diameter. The right kidney measures 12.2 x 6.4 x 3.6 cm. Left renal dimensions are 11.3 x 5.7 x 5.2 cm. The urinary bladder is unremarkable. Right ureteral jet is visualized with Doppler color evaluation. A left ureteral jet is not seen. Small hypoechoic structure superior to the right kidney measuring 1 cm in diameter could represent an adrenal nodule. No adrenal nodule seen on the prior CT 10/26/2018. IMPRESSION: No hydronephrosis. Slight prominence of the renal pelvis bilaterally. A right ureteral jet is visualized. A left ureteral jet is not seen raising the possibility of obstructed left ureter. Small hypoechoic nodular structure superior to the right kidney 1 cm in diameter could represent an adrenal nodule. Recommend follow-up CT. <Electronically signed by Vamshi Knapp > 12/27/19 [id number]
--- NOTE | 2019-12-27 15:30 | REP ---
INDICATION: left flank pain; further evaluate ureteral obstruction COMPARISON: 10/26/2018. TECHNIQUE: CT Scan of the abdomen and pelvis was performed without intravenous contrast. Sagittal and coronal reconstruction images performed. FINDINGS: Lung bases: There minor fibrotic changes in the visualized lung bases. Liver: Grossly unremarkable. Gallbladder: Unremarkable. Spleen: Grossly unremarkable.. Adrenals: Normal. Pancreas: Grossly unremarkable.. Kidneys: No hydronephrosis. A punctate calculus is seen in the mid right kidney. No left renal calculus is seen. A cyst of the lower pole of the left kidney measures 2 cm in diameter.. Ureters demonstrate no dilatation or calculus. Small and large bowel: Grossly unremarkable.. Free fluid: There is mild free fluid in the cul-de-sac.. Abdominal aorta: No aneurysm. Adenopathy: None. Appendix: Not inflamed. Osseous structures: There is evidence of prior surgical fusion at L5-S1. Pelvis: No mass. No bladder calculus seen. IMPRESSION: Punctate calculus mid right renal collecting system. No ureteral calculus bilaterally. No hydroureteronephrosis. No bladder calculus. No appendicitis. Mild free fluid in the cul-de-sac. <Electronically signed by Vamshi Knapp > 12/27/19 [id number]
[2019-12-27] MEDS ORDERED: MACR100C43 PO (16:10)
[2019-12-27] MEDS ORDERED: ONDA4TAB6 PO (16:21)
[2019-12-27 16:26] VITALS: BP 133/89
--- NOTE | 2019-12-27 18:31 | ED PDOC ---
Post-Departure Follow-Up dr muhammad faxed fomral report of renal us for fu Jacquie Wing MD Dec 27, 2019 18:31
== END 2019-12-27 16:29 | disposition home or self-care (01) ==
LOC: M ED 12:55
DX: R31.9 Hematuria, unspecified (principal); R82.71 Bacteriuria; N18.6 End stage renal disease; R56.9 Unspecified convulsions; G90.50 Complex regional pain syndrome I, unspecified; F43.10 Post-traumatic stress disorder, unspecified; Z87.442 Personal history of urinary calculi; F17.210 Nicotine dependence, cigarettes, uncomplicated; Z91.018 Allergy to other foods; Z88.2 Allergy status to sulfonamides; Z88.6 Allergy status to analgesic agent; Z88.8 Allergy status to other drugs, medicaments and biological substances; Z79.899 Other long term (current) drug therapy
CPT/HCPCS: 74176; 76775; 80047; 80076; 81001; 83690; 84702; 85025; 96374; 96375; 99284; J1885; J2405

== ENCOUNTER 2020-01-03 15:51 | Inpatient (IN) | payer MEDICARE ==
[~2020-01-03] VITALS: Ht 160 cm; Wt 61.2 kg
[~2020-01-03 15:51] MED LIST changes: +MACR100C43 PO
[2020-01-03 16:53] LABS: HEMATOCRIT 38.7 % (36.0-47.0); HEMOGLOBIN 12.9 g/dl (12.0-15.5); MEAN CORPUSCULAR HEMOGLOBIN 33.3 pg (27.0-33.0); MEAN CORPUSCULAR HGB CONC 33.3 g/dl (32.0-36.5); PLATELET COUNT, AUTOMATED 299 10^3/uL (150-450); RED BLOOD COUNT 3.87 10^6/uL (4.00-5.40); WHITE BLOOD COUNT 7.4 10^3/uL (4.0-10.0)
[2020-01-03 17:01] LABS: AMPHETAMINES LEVEL URINE POSITIVE (NEGATIVE); BARBITURATES URINE NEGATIVE (NEGATIVE); BENZODIAZEPINES URINE NEGATIVE (NEGATIVE); CANNABINOIDS URINE NEGATIVE (NEGATIVE); COCAINE METABOLITE URINE NEGATIVE (NEGATIVE); METHADONE URINE NEGATIVE (NEGATIVE); OPIATES URINE NEGATIVE (NEGATIVE); PHENCYCLIDINE URINE NEGATIVE (NEGATIVE)
[2020-01-03 17:15] LABS: HCG, SERUM QUALITATIVE NEGATIVE (NEGATIVE)
[2020-01-03 17:21] LABS: ACETAMINOPHEN LEVEL < 2.0 UG/ML (10.0-30.0); ALBUMIN 4.1 GM/DL (3.2-5.2); ALT/SGPT 20 U/L (12-78); BILIRUBIN,DIRECT 0.1 MG/DL (0.0-0.2); BILIRUBIN,TOTAL 0.3 MG/DL (0.2-1.0); BLOOD UREA NITROGEN 19 MG/DL (7-18); CALCIUM LEVEL 9.4 MG/DL (8.5-10.1); CARBON DIOXIDE LEVEL 27 MEQ/L (21-32); CHLORIDE LEVEL 109 MEQ/L (98-107); CREATININE FOR GFR 0.85 MG/DL (0.55-1.30); ETHYL ALCOHOL (ETHANOL) 0.006 % (0.000-0.010); GLOMERULAR FILTRATION RATE > 60.0 (>58); GLUCOSE, FASTING 99 MG/DL (70-100); POTASSIUM SERUM 3.7 MEQ/L (3.5-5.1); SALICYLATE LEVEL 4.7 MG/DL (5.0-30.0); SODIUM LEVEL 142 MEQ/L (136-145); THYROID STIMULATING HORMONE 0.514 uIU/ML (0.358-3.740); TOTAL PROTEIN 7.3 GM/DL (6.4-8.2)
[2020-01-03] MEDS ORDERED: BACL10TA2 PO (17:45)
[2020-01-03] MEDS ORDERED: NITR100C2 PO (17:45)
[2020-01-03] MEDS ORDERED: ADDE20TA PO (18:55)
[2020-01-03] MEDS ORDERED: NICOTINE 21MG/24HR 1 EA TRANSDERMAL TD ONE (22:00)
[2020-01-03] MEDS ORDERED: ALPRAZolam 0.25 MG TAB PO ONE (22:45)
[2020-01-03] MEDS ORDERED: MOM 30ML SUSPENSION UDC PO PRN (23:45)
[2020-01-03] MEDS ORDERED: OLANZapine ORAL DISINTEGRATING TAB 5MG PO PRN (23:45)
[2020-01-03] MEDS ORDERED: MAALOX 30 ML SUSP *UDC PO PRN (23:45)
[2020-01-03] MEDS ORDERED: BACLOFEN 10 MG TAB PO PRN (23:45)
[2020-01-04 07:12] VITALS: BP 124/81
[2020-01-04] MEDS: ADDERALL 5 MG TAB PO SCH ×2 (08:56→14:30)
[2020-01-04] MEDS: NICOTINE 21MG/24HR 1 EA TRANSDERMAL TD SCH (08:56)
[2020-01-04] MEDS: ACETAMINOPHEN TAB 650MG DOSE (2X325MG) PO PRN ×2 (11:20→22:44)
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
[2020-01-04 17:52] VITALS: BP 138/84
[2020-01-04] MEDS: NITROFURANTOIN (MACROBID) 100 MG CAP PO SCH (22:42)
[2020-01-04 23:30] VITALS: BP 132/81
[2020-01-05] VITALS: BP 132/84
[2020-01-05] MEDS: traZODone 50 MG TAB PO PRN ×2 (00:13→20:13)
[2020-01-05 06:55] VITALS: BP 123/78
[2020-01-05] MEDS: ADDERALL 5 MG TAB PO SCH ×2 (08:21→13:37)
[2020-01-05] MEDS: NITROFURANTOIN (MACROBID) 100 MG CAP PO SCH ×2 (08:21→20:13)
[2020-01-05] MEDS: NICOTINE 21MG/24HR 1 EA TRANSDERMAL TD SCH (08:23)
[2020-01-05] MEDS: IPRATROPIUM 0.5MG/ALBUTEROL 2.5MG INH SOL UD 3ML (DUONEB) NEB PRN ×2 (08:40)
[2020-01-05 18:40] VITALS: BP 131/82
[2020-01-06] MEDS: ACETAMINOPHEN TAB 650MG DOSE (2X325MG) PO PRN ×2 (00:47→14:10)
[2020-01-06 06:31] VITALS: BP 119/72
[2020-01-06] MEDS: ADDERALL 5 MG TAB PO SCH ×2 (07:44→14:04)
[2020-01-06] MEDS: NITROFURANTOIN (MACROBID) 100 MG CAP PO SCH ×2 (09:26→20:22)
[2020-01-06] MEDS: NICOTINE 21MG/24HR 1 EA TRANSDERMAL TD SCH (09:26)
[2020-01-06] MEDS: IPRATROPIUM 0.5MG/ALBUTEROL 2.5MG INH SOL UD 3ML (DUONEB) NEB PRN (10:12)
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
[2020-01-06 16:08] VITALS: BP 127/81
[2020-01-06] MEDS ORDERED: ACETAMINOPHEN 325 MG TAB PO ONE (17:30)
[2020-01-06] MEDS: CEPACOL LOZENGE PO PRN (20:23)
[2020-01-06] MEDS ORDERED: hydrOXYzine 50 MG TAB PO PRN (21:00)
[2020-01-07 06:47] VITALS: BP 152/94
[2020-01-07] MEDS: ADDERALL 5 MG TAB PO SCH ×2 (07:34→14:28)
[2020-01-07] MEDS: NICOTINE 21MG/24HR 1 EA TRANSDERMAL TD SCH (08:23)
[2020-01-07] MEDS: NITROFURANTOIN (MACROBID) 100 MG CAP PO SCH ×2 (08:23→21:07)
[2020-01-07] MEDS: ACETAMINOPHEN TAB 650MG DOSE (2X325MG) PO PRN ×2 (08:24→22:26)
--- NOTE | 2020-01-07 10:42 | MHIPNPDOC ---
[facility] Progress Note Progress Note DATE OF SERVICE: 01/07/20 HPI: Radha presents today to be met with for a mental health exam. She is somewhat tangential and talks about very spiritual beliefs. She believes she can see demons and other things. Radha does want to leave and is quite upset about not being allowed to leave right at this time. She is ambivalent but open to trying them. MEDICATIONS: Discussed with patient about medications. Objective Appearance: Fair hygiene. Appears to be stated age. Well nourished. Behavior: Cooperative with good eye contact. Affect: Elated. Thought Form: Associations are mildly loosened. Somewhat tangential. Thought Content: Some bizarre spiritual beliefs. No thoughts of self harm. No evidence of aggressive or homicidal ideation. No evidence of suicidal ideation. No evidence of delusions. Judgement: Poor. Insight: Poor. Assessment F29 Unspecified psychosis not due to a substance or known physiological condition Plan Offer Zyprexa 5 mg, nightly. Hopefully, patient will take this. Her psychosis is relatively mild. However, she signs a release for her mother, but have not been able to get a hold of mother to confirm baseline. Will continue to monitor and hopefully improve her state. Vital Signs Vital Signs Date Time Temp Pulse Resp B/P (MAP) Pulse Ox O2 Delivery O2 Flow Rate FiO2 01/07/20 09:08 Room Air 01/07/20 06:47 98.5 80 16 152/94 (113) 01/06/20 06:31 98 Current Medications Current Medications Medications (Trade) Dose Ordered Sig/Radha Route PRN Reason Start Time Stop Time Status Last Admin Dose Admin Acetaminophen (Tylenol Tab) 650 mg Q6HP PRN PO HEADACHE or DISCOMFORT 01/03/20 23:45 01/07/20 08:24 Al Hydrox/Mg Hydrox/Simethicone (Mylanta) 30 ml Q4HP PRN PO HEARTBURN/INDIGESTION 01/03/20 23:45 Albuterol/ Ipratropium (Duoneb (Ipr 0.5mg/Alb 2.5mg)) 3 ml Q4HP PRN NEB SOB/WHEEZING 01/04/20 23:45 01/06/20 10:12 Amphetamine/ Dextroamphetamine (Adderall) 20 mg BID@0800,1400 PO 01/04/20 08:00 01/07/20 07:34 Baclofen (Lioresal) 10 mg TID PRN PO PAIN 01/03/20 23:45 Cetylpyridinium Chloride (Cepacol) 1 gianluca Q2HP PRN PO SORE THROAT 01/06/20 18:45 01/06/20 20:23 Home Med (Med Rec Complete!) ASDIRECTED XX 01/03/20 21:45 01/03/20 21:36 DC Hydroxyzine HCl (Atarax) 50 mg QHSP PRN PO SLEEP 01/06/20 21:00 01/06/20 20:23 Magnesium Hydroxide (Milk Of Magnesia) 30 ml DAILYPRN PRN PO CONSTIPATION 01/03/20 23:45 Nicotine (Nicoderm Cq 21mg) 1 patch DAILY TD 01/04/20 09:00 01/07/20 08:23 Nitrofurantoin Monoh/Nitrofur Macro (Macrobid) 100 mg BID PO 01/04/20 21:00 01/07/20 08:23 Olanzapine (ZyPREXA ZYDIS) 5 mg Q4HP PRN PO ANXIETY/AGITATION 01/03/20 23:45 01/05/20 00:13 Quetiapine Fumarate (SEROquel) 50 mg QHS PRN PO insomnia 01/06/20 22:45 Trazodone HCl (Desyrel) 50 mg QHSP PRN PO INSOMNIA 01/03/20 23:45 01/06/20 18:45 DC 01/05/20 20:13 Allergies Coded Allergies: Grapefruit (Verified Allergy, Unknown, 01/03/20) Sulfa (Sulfonamide Antibiotics) (Verified Allergy, Unknown, 01/03/20) ibuprofen (Verified Allergy, Unknown, 01/03/20) nortriptyline (Verified Allergy, Unknown, 01/03/20) JAN SU DO Jan 07, 2020 10:42
[2020-01-07] MEDS: IPRATROPIUM 0.5MG/ALBUTEROL 2.5MG INH SOL UD 3ML (DUONEB) NEB PRN (13:42)
[2020-01-07 14:39] LABS: VITAMIN B12 LEVEL 330 PG/ML
[2020-01-07 16:33] VITALS: BP 138/90
[2020-01-07] MEDS: QUEtiapine FUMARATE 50 MG TAB PO PRN (21:07)
[2020-01-07] MEDS: OLANZapine ORAL DISINTEGRATING TAB 5MG PO SCH (21:07)
[2020-01-08 07:20] VITALS: BP 138/84
[2020-01-08] MEDS: ADDERALL 5 MG TAB PO SCH ×2 (07:37→13:39)
[2020-01-08] MEDS: NITROFURANTOIN (MACROBID) 100 MG CAP PO SCH ×2 (08:19→20:27)
[2020-01-08] MEDS: NICOTINE 21MG/24HR 1 EA TRANSDERMAL TD SCH (08:19)
--- NOTE | 2020-01-08 10:40 | MHIPNPDOC ---
[facility] Progress Note Progress Note DATE OF SERVICE: 01/08/20 HPI: Radha was met with again today. She was much more linear. No discussions of unusual ideation and was even able to understand how that could be perceived as quite unusual. She was pleasant and cooperative without any issues and appeared to be much more in control than yesterday. MEDICATIONS: She had been taking the Zyprexa as prescribed last night with good effect. Objective Appearance: Appears to be stated age. Well nourished. Well groomed. Behavior: Cooperative with good eye contact. Pleasant. Engaged. Affect: Appropriate to context. Full range. Mood: Appropriately reactive. Euthymic. Generally good. Speech: Normal volume. Spontaneous and Fluid. Normal rate. Motor: No gross motor abnormalities. Cognition: Alert, Attentive, and Oriented to person, place, time. Memory: No formal testing. No gross abnormalities of short or fpc memory noted during interview. Thought Form: Linear and goal directed. Thought Content: No thoughts of self harm. No evidence of suicidal ideation. No evidence of aggressive or homicidal ideation. No evidence of delusions. Perception: No perceptual abnormalities noted. Judgement: Intact as evidenced by decision making in the recent past. Insight: Good insight into symptoms and treatment options. Assessment F29 Unspecified psychosis not due to a substance or known physiological condition Plan Continue Zyprexa 5 mg nightly. Likely discharged tomorrow will be highly unlikely to be able to create a significant argument for imminent danger at this time given her court hearing request. Vital Signs Vital Signs Date Time Temp Pulse Resp B/P (MAP) Pulse Ox O2 Delivery O2 Flow Rate FiO2 01/08/20 07:20 97.0 88 16 138/84 (102) 01/07/20 09:08 Room Air 01/06/20 06:31 98 Current Medications Current Medications Medications (Trade) Dose Ordered Sig/Radha Route PRN Reason Start Time Stop Time Status Last Admin Dose Admin Acetaminophen (Tylenol Tab) 650 mg Q6HP PRN PO HEADACHE or DISCOMFORT 01/03/20 23:45 01/07/20 22:26 Al Hydrox/Mg Hydrox/Simethicone (Mylanta) 30 ml Q4HP PRN PO HEARTBURN/INDIGESTION 01/03/20 23:45 Albuterol/ Ipratropium (Duoneb (Ipr 0.5mg/Alb 2.5mg)) 3 ml Q4HP PRN NEB SOB/WHEEZING 01/04/20 23:45 01/07/20 13:42 Amphetamine/ Dextroamphetamine (Adderall) 20 mg BID@0800,1400 PO 01/04/20 08:00 01/08/20 07:37 Baclofen (Lioresal) 10 mg TID PRN PO PAIN 01/03/20 23:45 Cetylpyridinium Chloride (Cepacol) 1 gianluca Q2HP PRN PO SORE THROAT 01/06/20 18:45 01/06/20 20:23 Home Med (Med Rec Complete!) ASDIRECTED XX 01/03/20 21:45 01/03/20 21:36 DC Hydroxyzine HCl (Atarax) 50 mg QHSP PRN PO SLEEP 01/06/20 21:00 01/06/20 20:23 Magnesium Hydroxide (Milk Of Magnesia) 30 ml DAILYPRN PRN PO CONSTIPATION 01/03/20 23:45 Nicotine (Nicoderm Cq 21mg) 1 patch DAILY TD 01/04/20 09:00 01/08/20 08:19 Nitrofurantoin Monoh/Nitrofur Macro (Macrobid) 100 mg BID PO 01/04/20 21:00 01/08/20 08:19 Olanzapine (ZyPREXA ZYDIS) 5 mg Q4HP PRN PO ANXIETY/AGITATION 01/03/20 23:45 01/05/20 00:13 Olanzapine (ZyPREXA ZYDIS) 5 mg QHS PO 01/07/20 21:00 01/07/20 21:07 Quetiapine Fumarate (SEROquel) 50 mg QHS PRN PO insomnia 01/06/20 22:45 01/07/20 21:07 Trazodone HCl (Desyrel) 50 mg QHSP PRN PO INSOMNIA 01/03/20 23:45 01/06/20 18:45 DC 01/05/20 20:13 Allergies Coded Allergies: Grapefruit (Verified Allergy, Unknown, 01/03/20) Sulfa (Sulfonamide Antibiotics) (Verified Allergy, Unknown, 01/03/20) ibuprofen (Verified Allergy, Unknown, 01/03/20) nortriptyline (Verified Allergy, Unknown, 01/03/20) JAN SU DO Jan 08, 2020 10:40
[2020-01-08] MEDS: ACETAMINOPHEN TAB 650MG DOSE (2X325MG) PO PRN (12:52)
[2020-01-08] MEDS: IPRATROPIUM 0.5MG/ALBUTEROL 2.5MG INH SOL UD 3ML (DUONEB) NEB PRN (15:20)
[2020-01-08] MEDS ORDERED: SUMAtriptan SUCCINATE 25 MG TAB PO ONE (16:45)
[2020-01-08 16:46] VITALS: BP 147/91
[2020-01-08] MEDS: OLANZapine ORAL DISINTEGRATING TAB 5MG PO SCH (20:27)
[2020-01-08] MEDS: QUEtiapine FUMARATE 50 MG TAB PO PRN (20:27)
[2020-01-08] MEDS: CEPACOL LOZENGE PO PRN (21:01)
[2020-01-09 06:48] VITALS: BP 141/81
[2020-01-09] MEDS: ADDERALL 5 MG TAB PO SCH ×2 (08:28→13:06)
[2020-01-09] MEDS: NICOTINE 21MG/24HR 1 EA TRANSDERMAL TD SCH (08:30)
--- NOTE | 2020-01-09 08:32 | MHIPN ---
DATE: 01/05/2020 The patient today still is refusing to take medications. She continues to minimize her symptoms prior to admission. MENTAL STATUS EXAMINATION: She is alert and oriented times three. Eye contact is fair. Psychomotor activity is normal. There no formal thought disorder noted. She says that her mood is fine. Her affect is appropriate to mood. She continues to have paranoid delusions. She denies suicidal or homicidal ideations. Concentration is fair. Memory is intact. Insight and judgment are poor. DIAGNOSES: 1. Unspecified psychotic disorder. 2. Unspecified depressive disorder. 3. History of posttraumatic stress disorder, rule out major depressive with psychotic symptoms. 4. Rule out bipolar disorder. TREATMENT PLAN: At this point, we will continue to encourage the patient to start taking medications, but she has poor insight and judgment. She remains acutely psychotic. MIKE
--- NOTE | 2020-01-09 08:34 | MHIPN ---
DATE: 01/06/2020 The patient remains the same. She is acutely psychotic. She minimizes everything prior to coming in to the hospital, and she continues to refuse to take any medications. MENTAL STATUS EXAMINATION: This patient is alert and oriented times three. She is cooperative. She is verbally spontaneous; however, she is acutely delusional. She denies suicidal or homicidal ideations. Insight and judgment are poor. concentration fair. Memory is grossly intact. DIAGNOSES: 1. Unspecified psychotic disorder. 2. Unspecified depressive disorder. 3. History of posttraumatic stress disorder. 4. Rule out major depressive disorder with psychotic symptoms. 5. Rule out bipolar disorder. TREATMENT PLAN: At this point, patient remains acutely psychotic with poor insight and judgment. She refuses to take medications, but we will continue to encourage her to take medications. MIKE
--- NOTE | 2020-01-09 11:14 | MHDSPDOC ---
[facility] Discharge Summary Discharge Summary DATE OF ADMISSION: Jan 03, 2020 at 23:32 DATE OF DISCHARGE: Jan 09, 2020 at 13:25 DISCHARGE DIAGNOSES: F31.9 Bipolar disorder, unspecified CONSULTANTS INVOLVED:[ None (basic hospitalist screening)] REASON FOR ADMISSION & TREATMENT AND PROGRESS ON THE UNIT : she was admitted to an inpatient mental hospital. She was admitted to the inpatient mental health unit with some unusual and bizarre behavior. However, when she came in, she was somewhat hyper-verbal but overall pleasant. She reported spirits and unusual thought processes, but had been highly uninterested in taking medication. She was observed for a number of days. She eventually returned to a normal mental state with only some slight pressured speech. Her delusional, paranoid thoughts vanished quite quickly with the Zyprexa, and she did well without any major behavioral problems. Her insight and judgment improved as well after starting Zyprexa. MEDICATIONS: I managed to convince her to take some Zyprexa 5 mg qhs, of which she did, which massively improved her symptoms. DISCHARGE ASSESSMENT[improved] Legal status considerations: The patient at the time of discharge did not meet criteria for involuntary admission/extension due to having a [normal] mental status exam, [fair] insight into the situation, They are engaged in the discharge process, as well as being friendly and amenable in behavioral control and havent been engaging in any observed concerning behavior or ideation recently. They decline voluntary extension/admission at this time and must be discharged in [place], as Im unable to make a case for holding the patient against their will. They may have historical risk factors of admissions and other interactions with psychiatry however, those are not modifiable from a clinical perspective. The patient will need to be discharged in [place]. MENTAL STATUS EXAMINATION ON DISCHARGE: Behavior: Engaged. Pleasant. Cooperative with good eye contact. Affect: Full range. Affect is euthymic. Less elated than previous. Appropriate to context. Speech: Spontaneous and Fluid. Normal rate. Normal volume. Speech slightly pressured. Thought Form: Linear and goal directed. Thought Content: No evidence of delusions. No thoughts of self harm. No evidence of aggressive or homicidal ideation. No evidence of suicidal ideation. Judgement: Intact as evidenced by decision making in the recent past. Insight: Good insight into symptoms and treatment options. PLAN/FOLLOWUP ARRANGEMENTS: Follow up appointments made (PCP and MH in 5 days of D/C date) and safety plan completed. Safety Planning aspects completed prior to discharge [Medication supplies limited to 7 days with 4 refills to prevent accumulation to OD] [RN reviewed crisis hotline information and other aspects to empower patient to access care in interim before next appointment.] The amount of time spent in the coordination of care for this patient was approximately 30 minutes. Vital Signs/I&Os Vital Signs Date Time Temp Pulse Resp B/P (MAP) Pulse Ox O2 Delivery O2 Flow Rate FiO2 01/09/20 06:48 98.1 84 18 141/81 (101) 99 Room Air Medications Scheduled Dextroamphetamine/Amphetamine (Adderall 20 mg Tablet) 20 Mg Tablet, 1 TAB PO BID, (Reported) Nicotine (Nicotine Patch) 21 Mg Patch.td24, 1 PATCH TD DAILY for tobacco for 30 Days, #30 Nitrofurantoin Monohyd/M-Cryst (Nitrofurantoin [place]-Mcr 100 mg) 100 Mg Capsule, 100 MG PO BID, (Reported) last dose to be tonight 01/03/20 Olanzapine (Olanzapine) 5 Mg Tablet, 1 TAB PO QPM for mood for 7 Days, #7 Scheduled PRN Baclofen (Baclofen) 10 Mg Tablet, 10 MG PO TID PRN for PAIN, (Reported) Allergies Coded Allergies: Grapefruit (Verified Allergy, Unknown, 01/03/20) Sulfa (Sulfonamide Antibiotics) (Verified Allergy, Unknown, 01/03/20) ibuprofen (Verified Allergy, Unknown, 01/03/20) nortriptyline (Verified Allergy, Unknown, 01/03/20) JAN SU DO Jan 09, 2020 11:14
[2020-01-09] MEDS ORDERED: NICO21PAT TD (11:29)
[2020-01-09] MEDS ORDERED: OLAN5TAB PO (11:29)
[2020-01-09 13:13] LABS: FOLATE 12.3 NG/ML
== END 2020-01-09 13:25 | disposition home or self-care (01) | DRG 885 ==
LOC: M ED 15:51 → M ED INP 23:32 → M PSY 01-04 01:31
PROVIDERS: ADMIT Psychiatry & Neurology Psychiatry; ATTEND Psychiatry & Neurology Addiction Medicine
DX: F31.9 Bipolar disorder, unspecified (principal); Q61.5 Medullary cystic kidney; F43.10 Post-traumatic stress disorder, unspecified; E28.2 Polycystic ovarian syndrome; N18.2 Chronic kidney disease, stage 2 (mild); E03.9 Hypothyroidism, unspecified; F17.200 Nicotine dependence, unspecified, uncomplicated; Z79.899 Other long term (current) drug therapy; Z88.2 Allergy status to sulfonamides; Z88.6 Allergy status to analgesic agent; Z88.8 Allergy status to other drugs, medicaments and biological substances; Z91.018 Allergy to other foods; Z91.410 Personal history of adult physical and sexual abuse

== ENCOUNTER 2021-07-01 23:22 | Emergency (ER) | payer MEDICARE ==
[~2021-07-01] VITALS: Ht 160 cm; Wt 54.5 kg
[~2021-07-01 23:22] MED LIST changes: +ADDE20TA PO; +BACL10TA2 PO; +GABA-282; +GABA-282 PO; +GABA-283 PO; -GABA-843; -GABA-843 PO; -GABA-845 PO; +HYDR-3490 PO; -HYDR25TAB PO; -LAMO-11; +LAMO-30; +METH-1164 PO; -METH1TAB40 PO; +NICO21PAT TD; +NITR100C2 PO; -OLAN15TA; +OLAN15TA13; +OLAN1TAB16 PO
[2021-07-01 23:24] VITALS: BP 118/81
== END 2021-07-02 01:51 | disposition left against medical advice (07) ==
LOC: M ED 23:22
DX: Z53.21 Procedure and treatment not carried out due to patient leaving prior to being seen by health care provider (principal)

== ENCOUNTER → 2021-08-23 | Outpatient (REF) | payer MEDICARE, MEDICAID ==
[~2021-08-23] MED LIST changes: +CEFD300C41
[2021-08-23 21:47] LABS: APPEARANCE, URINE CLEAR (CLEAR); BACTERIA, URINE AUTO NEGATIVE (NEGATIVE); BILIRUBIN, URINE AUTO NEGATIVE (NEGATIVE); BLOOD, URINE BLOOD NEGATIVE (NEGATIVE); COLOR, URINE YELLOW (YELLOW); GLUCOSE, URINE (UA) AUTO NEGATIVE (NEGATIVE); KETONE, URINE AUTO NEGATIVE (NEGATIVE); LEUKOCYTE ESTERASE, URINE AUTO NEGATIVE (NEGATIVE); NITRITE, URINE AUTO NEGATIVE (NEGATIVE); PROTEIN, URINE AUTO NEGATIVE (NEGATIVE); RBC, URINE AUTO 1 /HPF (0-3); SQUAMOUS EPITHELIAL CELL UR AU 0 /HPF (0-6); UROBILINOGEN, URINE AUTO 0.2 mg/dL (0.0-2.0); WBC, URINE AUTO 0 /HPF (0-3)
== END ==
LOC: M LAB REF 21:30
PROVIDERS: ATTEND Physician Assistant Medical
DX: N39.0 Urinary tract infection, site not specified (principal)

== ENCOUNTER 2021-08-25 08:46 | Emergency (ER) | payer MEDICARE, MEDICAID ==
[~2021-08-25] VITALS: Ht 160 cm; Wt 53.4 kg
[~2021-08-25 08:46] MED LIST changes: -CEFD300C41
[2021-08-25 08:47] VITALS: BP 171/87
[2021-08-25] MEDS ORDERED: CEFD300C41 (08:56)
== END 2021-08-25 09:05 | disposition left against medical advice (07) ==
LOC: M ED 08:46
DX: Z53.21 Procedure and treatment not carried out due to patient leaving prior to being seen by health care provider (principal)

== ENCOUNTER 2021-08-30 00:27 | Emergency (ER) | payer MEDICARE, MEDICAID ==
[~2021-08-30] VITALS: Ht 160 cm; Wt 54.2 kg
[~2021-08-30 00:27] MED LIST changes: +CEFD300C41
[2021-08-30] MEDS ORDERED: NS 1,000 ML IV ONE (00:35)
[2021-08-30 00:50] LABS: VENOUS BASE EXCESS -1.3 (-2.0-2.0); VENOUS HCO3 22.8 MEQ/L (23.0-27.0); VENOUS O2 SATURATION 98.7 % (60.0-80.0); VENOUS PARTIAL PRESSURE CO2 35.9 mmHg (38.0-50.0); VENOUS PARTIAL PRESSURE O2 144.7 mmHg (30.0-50.0); VENOUS PH 7.421 UNITS (7.330-7.430); VENOUS STANDARD HCO3 23.5 MEQ/L; VENOUS TOTAL CO2 23.9 MEQ/L (24.0-28.0)
[2021-08-30] MEDS ORDERED: FLUC200T4 (00:53)
[2021-08-30] MEDS ORDERED: NYST50SS (00:53)
[2021-08-30] MEDS ORDERED: HYDR1CAP25 PO (00:53)
[2021-08-30 00:55] LABS: BASO # 0.1 10^3/uL (0.0-0.2); BASO % 0.7 % (0.0-1.0); EOS # 0.1 10^3/uL (0.0-0.5); EOS % 1.3 % (0.0-3.0); HEMATOCRIT 30.3 % (36.0-47.0); HEMOGLOBIN 9.5 g/dl (12.0-15.5); LYMPH # 2.1 10^3/uL (1.5-5.0); LYMPH % 25.1 % (24.0-44.0); MEAN CORPUSCULAR HEMOGLOBIN 26.8 pg (27.0-33.0); MEAN CORPUSCULAR HGB CONC 31.4 g/dl (32.0-36.5); MEAN CORPUSCULAR VOLUME 85.6 fl (80.0-96.0); MONO # 0.7 10^3/uL (0.0-0.8); MONO % 8.2 % (2.0-8.0); NEUTROPHILS # 5.4 10^3/uL (1.5-8.5); NEUTROPHILS % 64.5 % (36.0-66.0); PLATELET COUNT, AUTOMATED 352 10^3/uL (150-450); RED BLOOD COUNT 3.54 10^6/uL (4.00-5.40); WHITE BLOOD COUNT 8.3 10^3/uL (4.0-10.0)
[2021-08-30 01:19] LABS: HCG, SERUM QUALITATIVE NEGATIVE (NEGATIVE)
[2021-08-30 01:29] LABS: ACETAMINOPHEN LEVEL < 2.0 UG/ML (10.0-30.0); ALBUMIN 3.8 GM/DL (3.2-5.2); ALT/SGPT 13 U/L (12-78); BILIRUBIN,DIRECT < 0.1 MG/DL (0.0-0.2); BILIRUBIN,TOTAL 0.2 MG/DL (0.2-1.0); BLOOD UREA NITROGEN 18 MG/DL (7-18); CARBON DIOXIDE LEVEL 22 MEQ/L (21-32); CHLORIDE LEVEL 110 MEQ/L (98-107); ETHYL ALCOHOL (ETHANOL) 0.003 % (0.000-0.010); GLOMERULAR FILTRATION RATE > 60.0 (>58); GLUCOSE, FASTING 94 MG/DL (70-100); POTASSIUM SERUM 3.9 MEQ/L (3.5-5.1); SODIUM LEVEL 141 MEQ/L (136-145); THYROID STIMULATING HORMONE 0.354 uIU/ML (0.358-3.740); TOTAL PROTEIN 6.7 GM/DL (6.4-8.2)
[2021-08-30 02:33] LABS: AMPHETAMINES LEVEL URINE POSITIVE (NEGATIVE); BARBITURATES URINE NEGATIVE (NEGATIVE); BENZODIAZEPINES URINE NEGATIVE (NEGATIVE); CANNABINOIDS URINE NEGATIVE (NEGATIVE); COCAINE METABOLITE URINE NEGATIVE (NEGATIVE); METHADONE URINE NEGATIVE (NEGATIVE); OPIATES URINE NEGATIVE (NEGATIVE); PHENCYCLIDINE URINE NEGATIVE (NEGATIVE)
[2021-08-30] MEDS ORDERED: LORazepam 2 MG/ML VIAL IV STA (02:45)
[2021-08-30] MEDS ORDERED: LORazepam 2 MG/ML VIAL As Ordered ONE (02:52)
[2021-08-30] MEDS ORDERED: ACETAMINOPHEN TAB 650MG DOSE (2X325MG) PO ONE (03:30)
[2021-08-30 03:31] VITALS: BP 157/95
== END 2021-08-30 04:00 | disposition home or self-care (01) ==
LOC: M ED 00:27 → EDBD 00:27 → M ED 04:00
DX: F41.0 Panic disorder [episodic paroxysmal anxiety] (principal); N18.30 Chronic kidney disease, stage 3 unspecified; F17.200 Nicotine dependence, unspecified, uncomplicated; Z88.2 Allergy status to sulfonamides; Z88.6 Allergy status to analgesic agent; Z88.8 Allergy status to other drugs, medicaments and biological substances; Z79.899 Other long term (current) drug therapy
CPT/HCPCS: 70450; 80048; 80076; 80143; 80307; 81001; 82077; 82375; 82550; 82803; 83605; 84443; 84703; 85025; 93005; 93041; 94760; 96361; 96374; 99285; J2060

== ENCOUNTER 2021-09-13 02:42 | Emergency (ER) | payer MEDICARE, MEDICAID ==
[~2021-09-13] VITALS: Ht 160 cm; Wt 54.0 kg
[2021-09-13 02:42] VITALS: BP 159/86
[~2021-09-13 02:42] MED LIST changes: +FLUC200T4; +HYDR1CAP25 PO; +NYST50SS
[2021-09-13 03:55] LABS: BASO % 0.3 % (0.0-1.0); EOS # 0.1 10^3/uL (0.0-0.5); EOS % 1.4 % (0.0-3.0); HEMATOCRIT 28.4 % (36.0-47.0); HEMOGLOBIN 8.9 g/dl (12.0-15.5); LYMPH # 1.9 10^3/uL (1.5-5.0); LYMPH % 30.2 % (24.0-44.0); MEAN CORPUSCULAR HEMOGLOBIN 26.8 pg (27.0-33.0); MEAN CORPUSCULAR HGB CONC 31.3 g/dl (32.0-36.5); MEAN CORPUSCULAR VOLUME 85.5 fl (80.0-96.0); MONO # 0.5 10^3/uL (0.0-0.8); MONO % 8.3 % (2.0-8.0); NEUTROPHILS # 3.8 10^3/uL (1.5-8.5); NEUTROPHILS % 59.5 % (36.0-66.0); PLATELET COUNT, AUTOMATED 322 10^3/uL (150-450); RED BLOOD COUNT 3.32 10^6/uL (4.00-5.40); WHITE BLOOD COUNT 6.4 10^3/uL (4.0-10.0)
[2021-09-13 04:12] LABS: HCG, SERUM QUALITATIVE NEGATIVE (NEGATIVE)
[2021-09-13 04:21] LABS: ALBUMIN 3.7 GM/DL (3.2-5.2); ALT/SGPT 18 U/L (12-78); BILIRUBIN,DIRECT < 0.1 MG/DL (0.0-0.2); BILIRUBIN,TOTAL 0.2 MG/DL (0.2-1.0); BLOOD UREA NITROGEN 9 MG/DL (7-18); CALCIUM LEVEL 8.4 MG/DL (8.5-10.1); CARBON DIOXIDE LEVEL 24 MEQ/L (21-32); CHLORIDE LEVEL 114 MEQ/L (98-107); CREATININE FOR GFR 0.82 MG/DL (0.55-1.30); GLOMERULAR FILTRATION RATE > 60.0 (>58); GLUCOSE, FASTING 120 MG/DL (70-100); LIPASE 118 U/L (73-393); POTASSIUM SERUM 3.8 MEQ/L (3.5-5.1); SODIUM LEVEL 145 MEQ/L (136-145); TOTAL PROTEIN 6.6 GM/DL (6.4-8.2)
== END 2021-09-13 06:29 | disposition left against medical advice (07) ==
LOC: M ED 02:42
DX: Z53.21 Procedure and treatment not carried out due to patient leaving prior to being seen by health care provider (principal)

== ENCOUNTER → 2021-09-22 | Outpatient (REF) | payer MEDICARE, MEDICAID ==
[2021-09-23 09:46] LABS: APPEARANCE, URINE MANUAL CLOUDY (CLEAR); COLOR, URINE MANUAL PINK (YELLOW)
[2021-09-23 09:47] LABS: BILIRUBIN, URINE MANUAL NEGATIVE (NEGATIVE); BLOOD URINE MANUAL POSITIVE (NEGATIVE); GLUCOSE, URINE (UA) MANUAL NEGATIVE (NEGATIVE); KETONE, URINE MANUAL NEGATIVE (NEGATIVE); LEUKOCYTE ESTERASE, URINE MAN POSITIVE (NEGATIVE); NITRITE, URINE MANUAL OBSCURED (NEGATIVE); PROTEIN, URINE MANUAL 2+ mg/dL (NEGATIVE); UROBILINOGEN, URINE MANUAL NORMAL (NORMAL)
[2021-09-23 09:49] LABS: RBC, URINE TNTC /hpf (0-3); SQUAMOUS EPITHELIAL CELL URINE SMALL AMOUNT /hpf (SMALL AMT)
[2021-09-23 09:52] LABS: BACTERIA, URINE SMALL AMOUNT; HYALINE CAST, URINE NONE SEEN /lpf (0-1); MUCUS, URINE SMALL AMOUNT (NEGATIVE)
== END ==
LOC: M LAB REF 20:51
PROVIDERS: ATTEND Physician Assistant
DX: N39.0 Urinary tract infection, site not specified (principal)

== ENCOUNTER 2022-06-04 05:19 | Emergency (ER) | payer MEDICARE, MEDICAID ==
[~2022-06-04] VITALS: Ht 160 cm; Wt 54.0 kg
[~2022-06-04 05:19] MED LIST changes: +NYST-38; -NYST50SS; -OXYC-405 PO; +OXYC40TA40 PO
[2022-06-04] MEDS ORDERED: NS 1,000 ML IV ONE (06:35)
[2022-06-04] MEDS ORDERED: METOCLOPRAMIDE INJ 10MG/2ML VIAL IV ONE (06:35)
[2022-06-04] MEDS ORDERED: KETOROLAC 30 MG/ML 1ML VIAL IV ONE (06:35)
[2022-06-04 06:56] LABS: BASO % 0.3 % (0.0-1.0); EOS # 0.1 10^3/uL (0.0-0.5); HEMATOCRIT 33.9 % (36.0-47.0); HEMOGLOBIN 10.9 g/dl (12.0-15.5); LYMPH # 1.6 10^3/uL (1.5-5.0); LYMPH % 27.6 % (24.0-44.0); MEAN CORPUSCULAR HEMOGLOBIN 29.2 pg (27.0-33.0); MEAN CORPUSCULAR HGB CONC 32.2 g/dl (32.0-36.5); MEAN CORPUSCULAR VOLUME 90.9 fl (80.0-96.0); MONO # 0.5 10^3/uL (0.0-0.8); MONO % 7.7 % (2.0-8.0); NEUTROPHILS # 3.7 10^3/uL (1.5-8.5); NEUTROPHILS % 62.1 % (36.0-66.0); PLATELET COUNT, AUTOMATED 254 10^3/uL (150-450); RED BLOOD COUNT 3.73 10^6/uL (4.00-5.40); WHITE BLOOD COUNT 5.9 10^3/uL (4.0-10.0)
[2022-06-04 07:26] LABS: CK-MB VALUE MASS 2.3 NG/ML (<3.6); MAGNESIUM LEVEL 1.8 MG/DL (1.8-2.4)
[2022-06-04 07:29] LABS: FREE T4 1.04 NG/DL (0.89-1.76)
[2022-06-04 07:30] LABS: THYROID STIMULATING HORMONE 0.792 uIU/ML (0.55-4.78)
[2022-06-04 07:38] LABS: CPK CREATINE PHOSPHOKINASE 111 U/L (34-145); MB/CK RELATIVE INDEX 2.07 (< OR =4)
[2022-06-04 07:39] LABS: HCG, SERUM QUALITATIVE NEGATIVE (NEGATIVE)
[2022-06-04] MEDS ORDERED: ONDANSETRON 4MG 2ML VIAL IV ONE (07:55)
[2022-06-04] MEDS ORDERED: ONDA4TAB6 PO (08:57)
[2022-06-04 09:03] VITALS: BP 142/80
== END 2022-06-04 09:16 | disposition home or self-care (01) ==
LOC: M ED 05:19
DX: G43.909 Migraine, unspecified, not intractable, without status migrainosus (principal); M54.9 Dorsalgia, unspecified; R56.9 Unspecified convulsions; N18.9 Chronic kidney disease, unspecified; F32.A Depression, unspecified; F43.10 Post-traumatic stress disorder, unspecified; N80.9 Endometriosis, unspecified; Z98.51 Tubal ligation status; F17.210 Nicotine dependence, cigarettes, uncomplicated; Z88.2 Allergy status to sulfonamides; Z88.8 Allergy status to other drugs, medicaments and biological substances; Z91.018 Allergy to other foods; Z79.899 Other long term (current) drug therapy
CPT/HCPCS: 70450; 80047; 82550; 82553; 83735; 84439; 84443; 84484; 84703; 85025; 96374; 96375; 99284; J1885; J2405; J2765

== ENCOUNTER 2022-06-09 04:42 | Emergency (ER) | payer MEDICARE, MEDICAID ==
[~2022-06-09] VITALS: Ht 160 cm; Wt 54.0 kg
[2022-06-09] MEDS ORDERED: GABA-282 (05:09)
[2022-06-09] MEDS ORDERED: LAMO100T3 (05:09)
[2022-06-09] MEDS ORDERED: SUMA50TA2 (05:09)
[2022-06-09] MEDS ORDERED: NALO4SPR (05:09)
[2022-06-09] MEDS ORDERED: SUBO8MIS (05:09)
[2022-06-09] MEDS ORDERED: KETOROLAC 30 MG/ML 1ML VIAL IV ONE (06:30)
[2022-06-09] MEDS ORDERED: METOCLOPRAMIDE INJ 10MG/2ML VIAL IV ONE (06:30)
[2022-06-09] MEDS ORDERED: NS 1,000 ML IV ONE (06:30)
[2022-06-09 06:56] LABS: BASO % 0.5 % (0.0-1.0); EOS # 0.1 10^3/uL (0.0-0.5); EOS % 1.6 % (0.0-3.0); HEMATOCRIT 32.1 % (36.0-47.0); HEMOGLOBIN 10.8 g/dl (12.0-15.5); LYMPH # 2.2 10^3/uL (1.5-5.0); MEAN CORPUSCULAR HEMOGLOBIN 30.1 pg (27.0-33.0); MEAN CORPUSCULAR HGB CONC 33.6 g/dl (32.0-36.5); MEAN CORPUSCULAR VOLUME 89.4 fl (80.0-96.0); MONO # 0.5 10^3/uL (0.0-0.8); MONO % 7.8 % (2.0-8.0); NEUTROPHILS # 3.5 10^3/uL (1.5-8.5); NEUTROPHILS % 54.9 % (36.0-66.0); PLATELET COUNT, AUTOMATED 270 10^3/uL (150-450); RED BLOOD COUNT 3.59 10^6/uL (4.00-5.40); WHITE BLOOD COUNT 6.4 10^3/uL (4.0-10.0)
[2022-06-09 07:25] LABS: LIPASE 27 U/L (12-53)
[2022-06-09 07:27] LABS: ALBUMIN 3.1 G/DL (3.2-5.2); ALKALINE PHOSPHATASE 80 U/L (46-116); ALT/SGPT 14 U/L (7.0-40); AST/SGOT 15 U/L (<34); BILIRUBIN,DIRECT < 0.1 MG/DL (<0.4); BILIRUBIN,TOTAL 0.2 MG/DL (0.3-1.2); TOTAL PROTEIN 5.6 G/DL (5.7-8.2)
[2022-06-09] MEDS ORDERED: PSEU120T19 PO (08:36)
[2022-06-09 08:46] VITALS: BP 143/90
== END 2022-06-09 09:16 | disposition home or self-care (01) ==
LOC: M ED 04:42
DX: N20.0 Calculus of kidney (principal); R10.9 Unspecified abdominal pain; R51.9 Headache, unspecified; R93.5 Abnormal findings on diagnostic imaging of other abdominal regions, including retroperitoneum; Z88.2 Allergy status to sulfonamides; Z88.8 Allergy status to other drugs, medicaments and biological substances; Z91.018 Allergy to other foods; Z98.51 Tubal ligation status; F17.200 Nicotine dependence, unspecified, uncomplicated; E11.9 Type 2 diabetes mellitus without complications; R56.9 Unspecified convulsions; Q61.5 Medullary cystic kidney; Z79.899 Other long term (current) drug therapy
CPT/HCPCS: 74176; 80047; 80076; 81001; 83690; 85025; 96361; 96374; 96375; 99284; J1100; J1885; J2765

== ENCOUNTER 2022-06-26 22:13 | Emergency (ER) | payer MEDICARE, MEDICAID ==
[~2022-06-26] VITALS: Ht 160 cm; Wt 51.8 kg
[~2022-06-26 22:13] MED LIST changes: +NALO4SPR; +PSEU120T19 PO; +SUBO8MIS; +SUMA50TA2
[2022-06-27 00:42] LABS: BASO # 0.1 10^3/uL (0.0-0.2); BASO % 0.5 % (0.0-1.0); EOS # 0.3 10^3/uL (0.0-0.5); EOS % 2.5 % (0.0-3.0); HEMATOCRIT 31.4 % (36.0-47.0); HEMOGLOBIN 10.3 g/dl (12.0-15.5); LYMPH # 1.7 10^3/uL (1.5-5.0); LYMPH % 15.9 % (24.0-44.0); MEAN CORPUSCULAR HEMOGLOBIN 29.8 pg (27.0-33.0); MEAN CORPUSCULAR HGB CONC 32.8 g/dl (32.0-36.5); MEAN CORPUSCULAR VOLUME 90.8 fl (80.0-96.0); MONO # 0.7 10^3/uL (0.0-0.8); MONO % 6.5 % (2.0-8.0); NEUTROPHILS # 7.9 10^3/uL (1.5-8.5); NEUTROPHILS % 74.2 % (36.0-66.0); PLATELET COUNT, AUTOMATED 328 10^3/uL (150-450); RED BLOOD COUNT 3.46 10^6/uL (4.00-5.40); WHITE BLOOD COUNT 10.6 10^3/uL (4.0-10.0)
[2022-06-27] MEDS ORDERED: KETOROLAC 30 MG/ML 1ML VIAL IV ONE (00:50)
[2022-06-27] MEDS ORDERED: ONDANSETRON 4MG 2ML VIAL IV ONE (00:50)
[2022-06-27 01:04] LABS: LIPASE 18 U/L (12-53)
[2022-06-27 01:07] LABS: ALBUMIN 2.8 G/DL (3.2-5.2); ALKALINE PHOSPHATASE 99 U/L (46-116); ALT/SGPT 20 U/L (7.0-40); AST/SGOT 16 U/L (<34); BILIRUBIN,DIRECT < 0.1 MG/DL (<0.4); BILIRUBIN,TOTAL 0.2 MG/DL (0.3-1.2); TOTAL PROTEIN 6.1 G/DL (5.7-8.2)
[2022-06-27] MEDS ORDERED: NS 1,000 ML IV ONE (01:20)
[2022-06-27 01:37] LABS: HCG, SERUM QUALITATIVE NEGATIVE (NEGATIVE)
[2022-06-27 02:00] LABS: URINE PREG TEST NEGATIVE (NEGATIVE)
[2022-06-27 03:26] LABS: GC DNA AMPLIFICATION NEGATIVE (NEGATIVE)
[2022-06-27] MEDS ORDERED: ISOVUE-370 76% 100ML VIAL As Ordered ONE (04:05)
[2022-06-27] MEDS ORDERED: METOCLOPRAMIDE INJ 10MG/2ML VIAL IV ONE (04:20)
[2022-06-27] MEDS ORDERED: MORPHINE 4 MG/ML 1ML VIAL IV ONE (04:50)
[2022-06-27] MEDS ORDERED: PIPERACILLIN/TAZOBACTAM SOD 4.5 GM in D5W MINI-BAG PLUS 50 ML IV ONE (05:05)
[2022-06-27 05:41] VITALS: BP_DIAS 62
[2022-06-27] MEDS ORDERED: TRAM50TA2 PO (06:19)
[2022-06-27] MEDS ORDERED: ONDA4TAB6 PO (06:19)
[2022-06-27] MEDS ORDERED: CEFP200T PO (06:28)
[2022-06-27 06:31] VITALS: BP_SYST 108
== END 2022-06-27 06:35 | disposition home or self-care (01) ==
LOC: M ED 22:13
DX: K80.50 Calculus of bile duct without cholangitis or cholecystitis without obstruction (principal); R11.2 Nausea with vomiting, unspecified; J18.9 Pneumonia, unspecified organism; Z87.42 Personal history of other diseases of the female genital tract; Z88.8 Allergy status to other drugs, medicaments and biological substances; Z88.2 Allergy status to sulfonamides; Z79.899 Other long term (current) drug therapy
CPT/HCPCS: 74177; 76705; 76830; 76856; 80047; 80076; 81001; 83690; 84703; 85025; 87210; 87661; 87810; 87850; 93976; 96361; 96365; 96375; 99284; J1885; J2405; J2543; J2765; Q9967

== ENCOUNTER → 2022-07-26 | Outpatient (REF) | payer MEDICARE, MEDICAID ==
[~2022-07-26] MED LIST changes: +CEFP200T PO; +TRAM50TA2 PO
[2022-07-26 14:39] LABS: BASO % 0.5 % (0.0-1.0); EOS # 0.2 10^3/uL (0.0-0.5); EOS % 3.2 % (0.0-3.0); HEMATOCRIT 36.6 % (36.0-47.0); HEMOGLOBIN 11.6 g/dl (12.0-15.5); LYMPH # 2.4 10^3/uL (1.5-5.0); LYMPH % 39.1 % (24.0-44.0); MEAN CORPUSCULAR HGB CONC 31.7 g/dl (32.0-36.5); MEAN CORPUSCULAR VOLUME 91.5 fl (80.0-96.0); MONO # 0.4 10^3/uL (0.0-0.8); MONO % 7.1 % (2.0-8.0); NEUTROPHILS % 49.8 % (36.0-66.0); PLATELET COUNT, AUTOMATED 416 10^3/uL (150-450)
[2022-07-26 14:54] LABS: CHOLESTEROL LEVEL 156 MG/DL (<200); CHOLESTEROL RISK RATIO 3.92 (<5); HDL CHOLESTEROL 39.7 MG/DL (>40); LDL CHOLESTEROL 92.1 MG/DL (<100); NON-HDL-C 116.3 MG/DL; TRIGLYCERIDES LEVEL 121 MG/DL (<150)
[2022-07-26 14:56] LABS: HEMOGLOBIN A1c 5.2 % (4.0-6.0)
[2022-07-26 14:57] LABS: TOTAL 25(OH) VITAMIN D 22.5 NG/ML (20.0-100.0)
== END ==
LOC: M LAB REF 12:46
PROVIDERS: ATTEND Nurse Practitioner Family
DX: Z68.20 Body mass index [BMI] 20.0-20.9, adult (principal); Z11.9 Encounter for screening for infectious and parasitic diseases, unspecified; E55.9 Vitamin D deficiency, unspecified; R89.9 Unspecified abnormal finding in specimens from other organs, systems and tissues

== ENCOUNTER → 2022-07-29 | Outpatient (CLI) | payer MEDICARE, MEDICAID | LOC: M WHC 14:09 | PROVIDERS: ATTEND Nurse Practitioner Family | DX: Z12.31 Encounter for screening mammogram for malignant neoplasm of breast (principal); N63.12 Unspecified lump in the right breast, upper inner quadrant ==

== ENCOUNTER → 2022-08-03 | Outpatient (CLI) | payer MEDICARE, MEDICAID | LOC: M WHC 13:26 | PROVIDERS: ATTEND Nurse Practitioner Family | DX: R92.8 Other abnormal and inconclusive findings on diagnostic imaging of breast (principal) ==

== ENCOUNTER → 2022-08-23 | Outpatient (CLI) | payer MEDICARE, MEDICAID ==
[~2022-08-23] MED LIST changes: +**SFHN** LIDOCAINE 1% MDV 20ML VIAL ONE; +**SFHN** SODIUM BICARBONATE 8.4% 50MEQ 50ML VIAL ONE
[2022-08-23 14:22] VITALS: TEMP 97.7
[2022-08-23 15:31] VITALS: BP 132/82; O2SAT 100
== END ==
LOC: M WHCPRO 14:08
PROVIDERS: ATTEND Nurse Practitioner Family
DX: N63.11 Unspecified lump in the right breast, upper outer quadrant (principal); N63.13 Unspecified lump in the right breast, lower outer quadrant

== ENCOUNTER 2023-07-26 22:18 | Emergency (ER) | payer MEDICARE, MEDICAID ==
[~2023-07-26] VITALS: Ht 160 cm; Wt 54.3 kg
[~2023-07-26 22:18] MED LIST changes: -**SFHN** LIDOCAINE 1% MDV 20ML VIAL ONE; -**SFHN** SODIUM BICARBONATE 8.4% 50MEQ 50ML VIAL ONE; +CEFD1CAP9; -CEFD300C41; -GABA-283 PO; +GABA-284 PO; -KLON1TAB PO; +KLON1TAB13 PO; -NALO4SPR; +NALO4SPR3
[2023-07-26 22:19] VITALS: BP 139/83; TEMP 97.9; O2SAT 99
== END 2023-07-26 23:46 | disposition home or self-care (01) ==
LOC: M ED 22:18
DX: S92.491A Other fracture of right great toe, initial encounter for closed fracture (principal); Y92.019 Unspecified place in single-family (private) house as the place of occurrence of the external cause; Y93.9 Activity, unspecified; Y99.9 Unspecified external cause status; Z88.2 Allergy status to sulfonamides; Z88.8 Allergy status to other drugs, medicaments and biological substances; Z91.018 Allergy to other foods; Z79.899 Other long term (current) drug therapy

== ENCOUNTER → 2023-08-16 | Outpatient (CLI) | payer MEDICARE, MEDICAID ==
[~2023-08-16] MED LIST changes: +ONDA-282 PO; -ONDA4TAB6 PO
== END ==
LOC: M SOG 07:52
PROVIDERS: ATTEND Orthopaedic Surgery
DX: S92.414A Nondisplaced fracture of proximal phalanx of right great toe, initial encounter for closed fracture (principal)

== ENCOUNTER → 2023-09-13 | Outpatient (CLI) | payer MEDICARE, MEDICAID | LOC: M SOG 07:52 | PROVIDERS: ATTEND Orthopaedic Surgery | DX: S92.414A Nondisplaced fracture of proximal phalanx of right great toe, initial encounter for closed fracture (principal) ==